=== PATIENT | female | born 1980 | race Two or more races ===

== ENCOUNTER 2022-02-18 21:27 | Inpatient (IN) | payer OTHER ==
[~2022-02-18] VITALS: Ht 157.5 cm; Wt 79.9 kg
[2022-02-19 00:06] LABS: INR 0.92 (0.9-1.15)
[2022-02-19 00:14] LABS: Albumin 2.8 g/dL (3.4-5.0); Calcium 9.1 mg/dL (8.5-10.1); Potassium 3.8 mmol/L (3.5-5.1)
[2022-02-19 00:16] LABS: BUN/Creatinine Ratio 27.1
[2022-02-19 00:31] LABS: Bilirubin, Total 9.1 mg/dL (0.2-1.0); Total Protein 7.2 g/dL (6.4-8.2)
[2022-02-19 00:48] LABS: Hematocrit 31.9 % (36.0-46.0); Hemoglobin 11.1 g/dL (12.2-16.2); Mean Corpuscular Hemoglobin 32.3 pg (28.0-32.0); Mean Corpuscular Hgb Conc. 34.8 g/dL (32.0-36.0); Mean Corpuscular Volume 92.8 fL (80.0-100.0); Red Blood Cells 3.44 10^6/uL (4.0-5.20); White Blood Cell 3.7 10^3/uL (4.4-10.8)
[2022-02-19 00:50] LABS: Band Neutrophils % (manual) 0; Basophils % (manual) 0 (0.0-2.0); Blast Cells 0; Metamyelocytes % 0; Myelocytes % 0; Promyelocytes % 0; Reactive Lymphocytes 0
[2022-02-19 01:39] LABS: Eosinophils % (manual) 4 (0-7); Lymphocytes % (manual) 37 (10.0-50.0); Monocytes % (manual) 4 (0-12)
[2022-02-19] MEDS ORDERED: OXYCODONE W/ ACETAMINOPHEN 5/325MG TABLET PO ONE (05:15)
[2022-02-19] MEDS ORDERED: TEMAZEPAM 15 MG CAP PO PRN (06:15)
[2022-02-19] MEDS ORDERED: ONDANSETRON HCL 4 MG/2 ML VIAL IV PRN (06:15)
[2022-02-19] MEDS ORDERED: MAALOX PLUS or MAALOX 30 ML PO PRN (06:15)
[2022-02-19] MEDS ORDERED: ACETAMINOPHEN 325 MG TAB PO PRN (06:15)
[2022-02-19] MEDS ORDERED: DOCUSATE SOD 100 MG CAP PO PRN (06:15)
[2022-02-19 06:55] LABS: Hematocrit 32.1 % (36.0-46.0); Hemoglobin 11.3 g/dL (12.2-16.2); Mean Corpuscular Hemoglobin 32.1 pg (28.0-32.0); Mean Corpuscular Hgb Conc. 35.1 g/dL (32.0-36.0); Mean Corpuscular Volume 91.4 fL (80.0-100.0); Red Blood Cells 3.52 10^6/uL (4.0-5.20); Red Cell Distribution Width 16.7 % (11.8-14.3); White Blood Cell 3.5 10^3/uL (4.4-10.8)
[2022-02-19 06:59] LABS: Calcium 9.1 mg/dL (8.5-10.1); Potassium 3.4 mmol/L (3.5-5.1)
[2022-02-19 07:03] LABS: BUN/Creatinine Ratio 35.1
[2022-02-19 07:08] LABS: Blast Cells 0; Metamyelocytes % 0; Myelocytes % 0; Promyelocytes % 0; Reactive Lymphocytes 0
[2022-02-19] MEDS: SODIUM CHLORIDE 0.9% 1,000 ML IV SCH ×2 (10:05→22:55)
[2022-02-19 13:02] LABS: Band Neutrophils % (manual) 4; Basophils % (manual) 1 (0.0-2.0); Eosinophils % (manual) 3 (0-7); Lymphocytes % (manual) 28 (10.0-50.0); Monocytes % (manual) 6 (0-12)
[2022-02-19 16:56] LABS: Urine Bacteria NONE SEEN /hpf (None Seen); Urine Blood 3+ /uL (Negative); Urine Mucus FEW (None Seen); Urine Specific Gravity 1.023 (1.001-1.035); Urine WBC 6 /hpf (0 - 5)
[2022-02-19] MEDS ORDERED: LACTULOSE 20Gm/30ML SOLN PO ONE (20:30)
[2022-02-19 20:56] LABS: Albumin 2.6 g/dL (3.4-5.0); Calcium 8.8 mg/dL (8.5-10.1); Potassium 3.6 mmol/L (3.5-5.1)
[2022-02-19 21:10] LABS: Bilirubin, Total 8.2 mg/dL (0.2-1.0); Total Protein 6.7 g/dL (6.4-8.2)
[2022-02-20] MEDS: MORPHINE SULFATE INJ 2 MG/ml SYRG IV PRN ×2 (01:03→08:49)
[2022-02-20 03:18] VITALS: BP 92/47
[2022-02-20 05:00] VITALS: BP 103/61
[2022-02-20] MEDS: LACTULOSE 20Gm/30ML SOLN PO SCH ×2 (08:51→23:18)
[2022-02-20 09:00] VITALS: BP 100/50
[2022-02-20 09:15] LABS: Albumin 2.5 g/dL (3.4-5.0); Calcium 8.4 mg/dL (8.5-10.1); Potassium 3.5 mmol/L (3.5-5.1)
[2022-02-20 09:30] LABS: Hematocrit 32.7 % (36.0-46.0); Hemoglobin 10.9 g/dL (12.2-16.2); Mean Corpuscular Hemoglobin 31.1 pg (28.0-32.0); Mean Corpuscular Hgb Conc. 33.4 g/dL (32.0-36.0); Mean Corpuscular Volume 93.1 fL (80.0-100.0); Red Blood Cells 3.51 10^6/uL (4.0-5.20); Red Cell Distribution Width 16.7 % (11.8-14.3)
[2022-02-20 09:31] LABS: BUN/Creatinine Ratio 18.6; Bilirubin, Total 8.4 mg/dL (0.2-1.0); Total Protein 6.5 g/dL (6.4-8.2)
[2022-02-20 09:35] LABS: Basophils % (manual) 0 (0.0-2.0); Blast Cells 0; Metamyelocytes % 0; Myelocytes % 0; Promyelocytes % 0
[2022-02-20 11:33] LABS: Band Neutrophils % (manual) 10; Eosinophils % (manual) 3 (0-7); Lymphocytes % (manual) 33 (10.0-50.0); Monocytes % (manual) 3 (0-12); Reactive Lymphocytes 2
[2022-02-20 13:00] VITALS: BP 90/50
[2022-02-20] MEDS: SODIUM CHLORIDE 0.9% 1,000 ML IV SCH (14:29)
[2022-02-20 17:00] VITALS: BP 91/47
[2022-02-20] MEDS: methylPREDNISolone SOD SUCC 40 MG/ML VL IV SCH (23:18)
[2022-02-20] MEDS: URSODIOL 300 MG CAP PO SCH (23:18)
[2022-02-20] MEDS: HYDROcodone-ACET 5/325MG TAB PO PRN (23:19)
[2022-02-21 00:21] VITALS: BP 100/59
[2022-02-21] MEDS: LORazepam 0.5 MG TAB PO PRN ×2 (01:59→08:19)
[2022-02-21 05:00] VITALS: BP 108/67
[2022-02-21] MEDS: methylPREDNISolone SOD SUCC 40 MG/ML VL IV SCH ×3 (06:14→21:35)
[2022-02-21] MEDS: SODIUM CHLORIDE 0.9% 1,000 ML IV SCH ×2 (06:14→21:35)
[2022-02-21 09:00] VITALS: BP 123/70
[2022-02-21] MEDS: LACTULOSE 20Gm/30ML SOLN PO SCH ×2 (10:43→21:35)
[2022-02-21] MEDS: URSODIOL 300 MG CAP PO SCH ×2 (10:43→21:35)
[2022-02-21] MEDS ORDERED: URSO300C9 PO (10:51)
[2022-02-21 12:59] VITALS: BP 115/75
[2022-02-21 17:00] VITALS: BP 127/58
[2022-02-21] MEDS: HYDROcodone-ACET 5/325MG TAB PO PRN (18:59)
[2022-02-21] MEDS: MORPHINE SULFATE INJ 2 MG/ml SYRG IV PRN (20:28)
[2022-02-21 22:00] VITALS: BP 127/71
[2022-02-22] MEDS: LORazepam 0.5 MG TAB PO PRN ×2 (01:09→07:46)
[2022-02-22 05:00] VITALS: BP 118/65
[2022-02-22] MEDS: methylPREDNISolone SOD SUCC 40 MG/ML VL IV SCH ×2 (05:26→13:23)
[2022-02-22 08:16] LABS: Albumin 2.6 g/dL (3.4-5.0); Calcium 8.4 mg/dL (8.5-10.1)
[2022-02-22 08:32] LABS: Bilirubin, Total 6.4 mg/dL (0.2-1.0); Total Protein 6.6 g/dL (6.4-8.2)
[2022-02-22 09:00] VITALS: BP 116/71
[2022-02-22] MEDS: URSODIOL 300 MG CAP PO SCH (09:34)
[2022-02-22] MEDS: LACTULOSE 20Gm/30ML SOLN PO SCH (09:34)
[2022-02-22] MEDS ORDERED: LORA0.5T20 PO (10:09)
[2022-02-22] MEDS ORDERED: TRAM50TA2 PO (10:09)
[2022-02-22] MEDS ORDERED: METH4PAK PO (10:09)
[2022-02-22] MEDS ORDERED: AZIT500T66 PO (10:09)
[2022-02-22] MEDS ORDERED: URSO1TAB8 PO (10:09)
[2022-02-22 10:44] VITALS: BP 116/71
[2022-02-22] MEDS ORDERED: LACTULOSE 20Gm/30ML SOLN PO ONE (10:45)
[2022-02-23 09:02] LABS: Hepatitis B Surface Antibody Negative (Negative)
[2022-02-23 09:31] LABS: Hepatitis A Total Antibody Negative (Negative)
[2022-02-23 14:37] LABS: Hepatitis A Ab IgM Negative
[2022-02-23 14:38] LABS: Hepatitis B Core IgM Negative; Hepatitis C Antibody Negative (Negative)
== END 2022-02-22 14:15 | disposition home or self-care (01) | DRG 346 ==
LOC: ER 21:27 → OVERFLOW 02-19 06:08 → EAST 02-20 02:47
PROVIDERS: ADMIT Hospitalist; ATTEND Family Medicine
DX: M35.9 Systemic involvement of connective tissue, unspecified (principal); E43 Unspecified severe protein-calorie malnutrition; K76.6 Portal hypertension; R18.8 Other ascites; K74.3 Primary biliary cirrhosis; K74.60 Unspecified cirrhosis of liver; E86.0 Dehydration; Z68.32 Body mass index [BMI] 32.0-32.9, adult; N39.0 Urinary tract infection, site not specified; Z79.899 Other long term (current) drug therapy; R16.1 Splenomegaly, not elsewhere classified; Z20.822 Contact with and (suspected) exposure to COVID-19
CPT/HCPCS: 36415; 71045; 74176; 76705; 80048; 80053; 80074; 80329; 81001; 82140; 83516; 83605; 83690; 83880; 84484; 85007; 85027; 85610; 86038; 86225; 86235; 86704; 86706; 86708; 86803; 87086; 87340; 87426; G0378; J2405

== ENCOUNTER 2024-05-24 11:30 | Inpatient (IN) | payer OTHER ==
[~2024-05-24] VITALS: Ht 180.3 cm; Wt 82.2 kg
[~2024-05-24 11:30] MED LIST: AZIT500T66 PO; LORA-1121 PO; METH4PAK PO; TRAM50TA2 PO; URSO1TAB8 PO; URSO300C2 PO
--- NOTE | 2024-05-24 11:43 | ED.PDOC ---
GI ASSESSMENT HPI Comments 43 year old female presents to the ED with chief complaint of abdominal pain. Patient reports that she has been experiencing 8/10 RUQ abdominal pain with associated nausea, vomiting, and jaundice to her eyes. 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 Patient states that her pain sometimes radiates to her back. Patient denies any diarrhea, fever, chills, chest pain, SOB, or hematemesis. Time Seen by MD: 11:39 Reviewed Notes: Nurses Notes, Medications, Allergies Allergies: Coded Allergies: NO KNOWN ALLERGIES (Unverified , 02/18/22) Home Meds Active Scripts Lorazepam (ATIVAN TABLET) 0.5 Mg Tb, 1 TAB PO TID PRN, #20 TAB Prov:MICHELLE ZAMORA MD 02/22/22 Tramadol Hcl (Tramadol Hcl) 50 Mg Tab, 50 MG PO TID PRN, #20 TAB Prov:MICHELLE ZAMORA MD 02/22/22 Ursodiol (Ursodiol) 500 Mg Tab, 500 MG PO BID, #60 TAB Prov:MICHELLE ZAMORA MD 02/22/22 Methylprednisolone (Medrol Dosepak) 4 Mg Jonah, 4 MG PO UD, #21 TAB UAD Prov:MICHELLE ZAMORA MD 02/22/22 Azithromycin (Azithromycin) 500 Mg Tab, 1 TAB PO DAILY, #7 TAB Prov:MICHELLE ZAMORA MD 02/22/22 Reported Medications Ursodiol (Ursodiol) 300 Mg Cap, 300 MG PO BID for 30 Days, MG 02/21/22 Information Source: Patient Mode of Arrival: Ambulatory Timing: Days Duration: Since onset Prehospital treatment: None Quality: Sharp Vomitus: Watery Stool: Normal Severity: Moderate Recent: None Recent Hx of: Liver Disease Pain Location: RUQ Modifying Factors: Nothing Associated sign and symptoms: Nausea, Vomiting, Abdominal Pain, Other (Jaundice) Past Medical History PAST MEDICAL HISTORY: Liver Surgical History: Appendectomy SEWER DIGGER History: No Pertinent SEWER DIGGER History Family History Family History: Reviewed,noncontributory to illness, Family hx of Cancer Family History (Other): Aneurysm Social History Smoker: Non-Smoker Alcohol: Denies ETOH Use Drugs: Denies Drug Use Lives In: Home Constitutional: denies: chills, diaphoresis, fatigue, fever, malaise, sweats, weakness, others EENTM: denies: blurred vision, double vision, ear bleeding, ear discharge, ear drainage, ear pain, ear ringing, eye pain, eye redness, hearing loss, mouth pain, mouth swelling, nasal discharge, nose bleeding, nose congestion, nose pain, photophobia, tearing, throat pain, throat swelling, voice changes, others Respiratory: denies: cough, hemoptysis, orthopnea, SOB at rest, shortness of breath, SOB with excertion, stridor, wheezing, others Cardiovascular: denies: chest pain, dizzy spells, diaphoresis, Dyspnea on exertion, edema, irregular heart beat, left arm pain, lightheadedness, palpitations, PND, syncope, others Gastrointestinal: reports: abdominal pain, nausea, vomiting; denies: abdomen distended, blood streaked bowels, constipated, diarrhea, dysphagia, difficulty swallowing, hematemesis, melena, poor appetite, poor fluid intake, rectal bleeding, rectal pain, others Genitourinary: denies: abnormal vagina bleeding, burning, dyspareunia, dysuria, flank pain, frequency, hematuria, incontinence, pain, , vagina discharge, urgency, others Neurological: denies: dizziness, fainting, headache, left sided numbness, left sided weakness, numbness, paresthesia, pre-existing deficit, right sided numbness, right sided weakness, seizure, speech problems, tingling, tremors, weakness, others Musculoskeletal: denies: back pain, gout, joint pain, joint swelling, muscle pain, muscle stiffness, neck pain, others Integumetry: reports: change in color (Jaundice); denies: bruises, change in hair/nails, dryness, laceration, lesions, lumps, rash, wounds, others Allergic/Immunocompromised: denies: Difficulty Healing, Frequent Infections, Hives, Itching, others Hematologic/Lymphatic: denies: anemia, blood clots, easy bleeding, easy bruising, swollen glands, others Endocrine: denies: excessive hunger, excessive sweating, excessive thirst, excessive urination, flushing, intolerance to cold, intolerance to heat, unexplained weight gain, unexplained weight loss, others Psychiatric: denies: anxiety, bipolar disorder, depression, hopeless, panic disorder, schizophrenia, sleepless, suicidal, others All Other Systems: Reviewed and Negative Physical Exam General Appearance: Moderate Distress HEENT: Pharynx Normal, Scleral Icterus (L), Scleral Icterus (R), TMs Normal Neck: Full Range of Motion, Non-Tender, Normal, Normal Inspection Respiratory: Chest Non-Tender, Lungs Clear, No Accessory Muscle Use, No Respiratory Distress, Normal Breath Sounds Cardiovascular: No Edema, No JVD, No Murmur, No Gallop, Normal Peripheral Pulses, Regular Rate/Rhythm Breast Exam: Deferred Gastrointestinal: No Organomegaly, No Pulsatile Mass, Normal Bowel Sounds, RUQ, Soft, Tenderness Genitalia: Deferred Pelvic: Deferred Rectal: Deferred Extremities: No calf tenderness, Normal capillary refill, Normal inspection, Normal range of motion, Non-tender, No pedal edema Musculoskeletal : Apperance: Normal Neurologic: Alert, dry starch operator II-XII nml as Tested, Motor Weakness, Normal Affect, Normal Mood, No Sensory Deficits Cerebellar Function: Normal Reflexes: Normal Skin: Dry, Jaundice, Warm Lymphatic: No Adenopathy Was a procedure done? Was a procedure done?: No GI differential Dx Differential Diagnosis: Gastritis/PUD, Gastroenteritis, Pancreatitis, Electrolyte Imbalance X-Ray, Labs, Meds, VS Vital Signs Date Time Temp Pulse Resp B/P (MAP) Pulse Ox O2 Delivery O2 Flow Rate FiO2 05/24/24 13:16 80 16 118/71 05/24/24 13:16 98.2 80 16 118/71 (87) 97 98.2 05/24/24 11:38 98.1 96 16 129/83 (98) 97 98.1 Lab Test 05/24/24 12:48 Range/Units White Blood Count 2.9 L 4.4-10.8 10^3/uL Red Blood Count 3.55 L 4.0-5.20 10^6/uL Hemoglobin 11.5 L 12.2-16.2 g/dL Hematocrit 34.0 L 36.0-46.0 % Mean Corpuscular Volume 95.9 80.0-100.0 fL Mean Corpuscular Hemoglobin 32.5 H 28.0-32.0 pg Mean Corpuscular Hemoglobin Concent 33.9 32.0-36.0 g/dL Red Cell Distribution Width 16.3 H 11.8-14.3 % Platelet Count 134 L 140-450 10^3/uL Mean Platelet Volume 9.6 6.9-10.8 fL Neutrophils (%) (Auto) 56.2 37.0-80.0 % Lymphocytes (%) (Auto) 28.5 10.0-50.0 % Monocytes (%) (Auto) 10.3 0.0-12.0 % Eosinophils (%) (Auto) 4.3 0.0-7.0 % Basophils (%) (Auto) 0.7 0.0-2.0 % Neutrophils # (Auto) 1.6 1.6-8.6 10 ^3/uL Lymphocytes # (Auto) 0.8 0.4-5.4 10 ^3/uL Monocytes # (Auto) 0.3 0-1.3 10 ^3/uL Eosinophils # (Auto) 0.1 0-0.8 10 ^3/uL Basophils # (Auto) 0 0-0.2 10 ^3/uL Nucleated Red Blood Cells 0.2 % Prothrombin Time 10.7 9.3-11.8 sec Prothrombin Time INR 1.01 0.9-1.15 Activated Partial Thromboplast Time 27.9 24.5-34.5 SEC Sodium Level 138 136-145 mmol/L Potassium Level 3.8 3.5-5.1 mmol/L Chloride Level 102 98-107 mmol/L Carbon Dioxide Level 29 20-31 mmol/L Anion Gap 7 5-15 Blood Urea Nitrogen 12 9-23 mg/dL Creatinine 0.47 L 0.550-1.02 mg/dL Glomerular Filtration Rate Calc 121 >90 mL/min BUN/Creatinine Ratio 25.5 H 10.0-20.0 Serum Glucose 90 74-106 mg/dL Calcium Level 9.4 8.7-10.4 mg/dL Total Bilirubin 7.0 H 0.2-1.0 mg/dL Aspartate Amino Transferase (AST) 142 H 13-40 U/L Alanine Aminotransferase (ALT) 115 H 7-40 U/L Alkaline Phosphatase 863 H 46-116 U/L Total Protein 6.9 5.7-8.2 g/dL Albumin 3.3 3.2-4.8 g/dL Lipase 108 H 12-53 U/L Current Medications Medications (Trade) Dose Ordered Sig/Sunday Route Start Time Stop Time Status Last Admin Ondansetron HCl (Zofran) 4 mg ONCE ONCE IV 05/24/24 11:45 05/24/24 11:46 DC 05/24/24 13:15 Morphine Sulfate 4 mg ONCE ONCE IV 05/24/24 11:45 05/24/24 11:46 DC 05/24/24 13:16 Sodium Chloride 500 ml @ 500 mls/hr Q1H ONCE IVB 05/24/24 11:45 05/24/24 12:44 DC 05/24/24 13:14 Gallbladder US indicates: Gallstones and gallbladder sludge. Gallbladder wall thickening measuring 4 mm. Sonographic graves's sign is reportedly positive. Findings can be seen in the setting of acute cholecystitis. IV Hep-Lock was established. The patient was given normal saline at 500 cc bolus. The patient was given morphine 4 mg IV push for the pain The patient was given Zofran 4 mg IV push for the nausea The lipase is elevated at 108 The liver enzymes are elevated The CBC shows mild anemia with a hemoglobin of 11.5 The patient was being admitted at this time Images Reviewed?: Images reviewed and evaluated by me Time of 1ST Reevaluation: 14:11 Reevaluation 1ST: Unchanged Patient Education/Counseling: Diagnosis, Treatment, Prognosis Family Education/Counseling: No Family Present Additional Information -Reviewed patient's previous visit(s): 02/19/22 for suspected cirrhosis - The following tests were ordered, and results were reviewed by me: CBC, CMP, Lipase, Gallbladder US, PTPTT - Additional information was gathered from interviewing the following independent Historian: None - I reviewed and agreed with the following test results read by other provider: Gallbladder US - I discussed treatments and results with medical personnel and: patient Comprehensive systems review obtained and negative except for what is stated in the HPI. Departure 1 Departure Time of Disposition: 14:10 Impression: Primary Impression: Intractable abdominal pain Additional Impression: Acute cholecystitis Disposition: ADMITTED INPATIENT Admit to: Tele Condition: Fair Critical Care Note Critical Care Time?: No Stability Stability form required: Yes Unstable for transfer: ED Physician Assesment (Clinical assesment) Heart Score Heart Score: Heart Score Response (Comments) Value History N/A 0 EKG N/A 0 Age N/A 0 Risk Factors N/A 0 Troponin N/A 0 Total 0 I personally scribed for SUZETTE ARTHUR MD ([email or web address]) on 05/24/24 at 11:43. Electronically submitted by Dereck Woodward ([email or web address]). I personally scribed for SUZETTE ARTHUR MD ([email or web address]) on 05/24/24 at 11:45. Electronically submitted by Dereck Woodward ([email or web address]). I personally scribed for SUZETTE ARTHUR MD ([email or web address]) on 05/24/24 at 14:01. Electronically submitted by Dereck Woodward ([email or web address]). SUZETTE ARTHUR MD May 24, 2024 11:43
--- NOTE | 2024-05-24 13:08 | DVH ---
INDICATION: pain TECHNIQUE: Multiple real-time sonographic images were obtained of the right upper quadrant. COMPARISON: ABDL on DOS: 02/21/22, ABDOMEN LIMITED on DOS: 02/21/22, ABDOMEN LIMITED on DOS: 02/19/22, ABDL on DOS: 02/19/22 FINDINGS: The liver demonstrates homogenous echotexture without focal mass lesions. The liver measure s 13 cm. There is no intrahepatic or extrahepatic ductal dilatation. The common duct measures not w ell visualized due to obscuration from bowel gas. The gallbladder is without evidence of stone or sludge. The gallbladder wall measures 4 mm and is wi thin normal limits. Sonographic Mars's sign is reportedly positive. The right kidney measures 10.8 cm. The right kidney is normal in contour, size, and shape. The echog enicity is normal. There is no hydronephrosis. The pancreas is not well visualized due to overlying bowel gas. IMPRESSION: Gallstones and gallbladder sludge. Gallbladder wall thickening measuring 4 mm. Sonographic mars's sign is reportedly positive. Findings can be seen in the setting of acute cholecystitis.
[2024-05-24] MEDS: SODIUM CHLORIDE 0.9% 500 ML IVB ONE (13:14)
[2024-05-24 13:15] LABS: Basophils # (auto) 0 10 ^3/uL (0-0.2); Basophils % (auto) 0.7 % (0.0-2.0); Eosinophils # (auto) 0.1 10 ^3/uL (0-0.8); Eosinophils % (auto) 4.3 % (0.0-7.0); Hemoglobin 11.5 g/dL (12.2-16.2); Lymphocytes # (auto) 0.8 10 ^3/uL (0.4-5.4); Lymphocytes % (auto) 28.5 % (10.0-50.0); Mean Corpuscular Hemoglobin 32.5 pg (28.0-32.0); Mean Corpuscular Hgb Conc. 33.9 g/dL (32.0-36.0); Mean Corpuscular Volume 95.9 fL (80.0-100.0); Monocytes # (auto) 0.3 10 ^3/uL (0-1.3); Monocytes % (auto) 10.3 % (0.0-12.0); Neutrophils # (auto) 1.6 10 ^3/uL (1.6-8.6); Neutrophils % (auto) 56.2 % (37.0-80.0); Nucleated Red Blood Cells % 0.2 %; Platelet Count (auto) 134 10^3/uL (140-450); Red Blood Cells 3.55 10^6/uL (4.0-5.20); Red Cell Distribution Width 16.3 % (11.8-14.3); White Blood Cell 2.9 10^3/uL (4.4-10.8)
[2024-05-24] MEDS: ONDANSETRON HCL 4 MG/2 ML VIAL IV ONE ×2 (13:15→18:01)
[2024-05-24] MEDS: MORPHINE SULFATE 4 MG/ML SYR/VIAL IV ONE ×2 (13:16→18:01)
[2024-05-24 13:20] LABS: INR 1.01 (0.9-1.15); Partial Thromboplastin Time 27.9 SEC (24.5-34.5); Prothrombin Time 10.7 sec (9.3-11.8)
[2024-05-24 13:23] LABS: Albumin 3.3 g/dL (3.2-4.8); Anion Gap 7 (5-15); BUN/Creatinine Ratio 25.5 (10.0-20.0); Blood Urea Nitrogen 12 mg/dL (9-23); Calcium 9.4 mg/dL (8.7-10.4); Carbon Dioxide 29 mmol/L (20-31); Chloride 102 mmol/L (98-107); Glucose 90 mg/dL (74-106); Potassium 3.8 mmol/L (3.5-5.1); Sodium 138 mmol/L (136-145); Total Protein 6.9 g/dL (5.7-8.2)
[2024-05-24 13:24] LABS: Alanine Aminotransferase 115 U/L (7-40); Alkaline Phosphatase 863 U/L (46-116); Aspartate Aminotransferase 142 U/L (13-40); Lipase 108 U/L (12-53)
[2024-05-24] MEDS: metroNIDAZOLE 500MG/100ML 100 ML IV ONE (14:42)
[2024-05-24] MEDS: LACTATED RINGER'S 1,000 ML IV SCH (19:00)
--- NOTE | 2024-05-24 19:04 | DVHHPRES ---
History of Present Illness Resident Creating Document: SAMUEL CALDERON RESIDENT History of Present Illness This is a 43-year-old female with past medical history of liver disease presented to the ED with a chief complaint of right upper quadrant abdominal pain with nausea and vomiting and also yellow discoloration of the sclera for last 2 days prior to this admission. According to the patient the abdominal pain started 2 days ago which was sharp colicky pain, 8/10, radiates to the back, associated with nausea, vomiting and yellow coloration of the sclera. She also complaint of burning sensation and foul smelly urine for the same duration. she mentioned that she has a intermittent jaundice for last 1 year and her primary care is down the [facility] in [place]. she denies fever, chills, chest pain, shortness of breath, altered bowel habit, recent sick contact or any recent traveling. Past Medical History Liver disease Past Surgical History Appendectomy Family History None Smoke: No ALCOHOL: none Drugs: None Lives: with Family Past Social History Lives with family Nonsmoker, nonalcoholic and never tried any drugs Review of Systems Constitutional: No: Fever, Chills, Sweats, Weakness, Malaise, Other Eyes: No: Pain, Vision change, Conjunctivae inflammation, Eyelid inflammation, Other, Redness ENT: No: Ear pain, Ear discharge, Nose pain, Nose discharge, Nose congestion, Mouth pain, Mouth swelling, Throat pain, Throat swelling, Other Respiratory: No: Cough, Dry, Shortness of breath, SOB with excertion, Wheezing, Hemoptysis, Pleuritic Pain, Sputum, Wheezing, Other Cardiovascular: No: Chest Pain, Palpitations, Orthopnea, Paroxysmal Noc. Dyspnea, Edema, Lt Headedness, Other Gastrointestinal: Nausea, Vomiting, Abdominal Pain; No: Diarrhea, Constipation, Melena, Hematochezia, Other Genitourinary: No Dysuria, No Frequency, No Incontinence, No Hematuria, No Retention, No Other Musculoskeletal: No: other, neck pain, shoulder pain, arm pain, back pain, hand pain, leg pain, foot pain Skin: No: Rash, Lesions, Jaundice, Bruising, Other Neurological: No: Weakness, Numbness, Incoordination, Change in speech, Confusion, Seizures, Other Allergies: Coded Allergies: NO KNOWN ALLERGIES (Unverified , 02/18/22) Exam Vital Signs Vital Signs Date Time Temp Pulse Resp B/P (MAP) Pulse Ox O2 Delivery O2 Flow Rate FiO2 05/24/24 18:27 72 20 122/67 05/24/24 17:48 98.0 98 98.0 Exam Physical examination: General Appearance: Alert, Oriented X3, Cooperative, mild distress ( Icteric appearance) HEENT: Atraumatic, PERRLA, EOMI, Mucous membrane moist/pink Respiratory: Clear to auscultation, Normal air movement Cardiovascular: Regular rate, Normal S1, Normal S2, No murmurs, no chest wall tenderness Abdominal: Normal bowel sounds, Soft, rt upper quadrant tenderness, No hepatospenomegaly, No masses Extremities: No clubbing, No cyanosis, No edema, Normal pulses, No tenderness/swelling Skin: No rashes, No breakdown, No significant lesion Neuro: Normal gait, Normal speech, Strength at 5/5 X4 ext, Normal tone, Sensation intact, Cranial nerves 3-12 NL, Reflexes 2+ Psych/Mental Status: Mental status NL, Mood NL Labs/Xrays Labs Test 05/24/24 12:48 Range/Units White Blood Count 2.9 L 4.4-10.8 10^3/uL Red Blood Count 3.55 L 4.0-5.20 10^6/uL Hemoglobin 11.5 L 12.2-16.2 g/dL Hematocrit 34.0 L 36.0-46.0 % Mean Corpuscular Volume 95.9 80.0-100.0 fL Mean Corpuscular Hemoglobin 32.5 H 28.0-32.0 pg Mean Corpuscular Hemoglobin Concent 33.9 32.0-36.0 g/dL Red Cell Distribution Width 16.3 H 11.8-14.3 % Platelet Count 134 L 140-450 10^3/uL Mean Platelet Volume 9.6 6.9-10.8 fL Neutrophils (%) (Auto) 56.2 37.0-80.0 % Lymphocytes (%) (Auto) 28.5 10.0-50.0 % Monocytes (%) (Auto) 10.3 0.0-12.0 % Eosinophils (%) (Auto) 4.3 0.0-7.0 % Basophils (%) (Auto) 0.7 0.0-2.0 % Neutrophils # (Auto) 1.6 1.6-8.6 10 ^3/uL Lymphocytes # (Auto) 0.8 0.4-5.4 10 ^3/uL Monocytes # (Auto) 0.3 0-1.3 10 ^3/uL Eosinophils # (Auto) 0.1 0-0.8 10 ^3/uL Basophils # (Auto) 0 0-0.2 10 ^3/uL Nucleated Red Blood Cells 0.2 % Prothrombin Time 10.7 9.3-11.8 sec Prothrombin Time INR 1.01 0.9-1.15 Activated Partial Thromboplast Time 27.9 24.5-34.5 SEC Sodium Level 138 136-145 mmol/L Potassium Level 3.8 3.5-5.1 mmol/L Chloride Level 102 98-107 mmol/L Carbon Dioxide Level 29 20-31 mmol/L Anion Gap 7 5-15 Blood Urea Nitrogen 12 9-23 mg/dL Creatinine 0.47 L 0.550-1.02 mg/dL Glomerular Filtration Rate Calc 121 >90 mL/min BUN/Creatinine Ratio 25.5 H 10.0-20.0 Serum Glucose 90 74-106 mg/dL Calcium Level 9.4 8.7-10.4 mg/dL Total Bilirubin 7.0 H 0.2-1.0 mg/dL Aspartate Amino Transferase (AST) 142 H 13-40 U/L Alanine Aminotransferase (ALT) 115 H 7-40 U/L Alkaline Phosphatase 863 H 46-116 U/L Total Protein 6.9 5.7-8.2 g/dL Albumin 3.3 3.2-4.8 g/dL Lipase 108 H 12-53 U/L Assessment/Plan Assessment/Plan Assessment and plan: # Acute cholecystitis with possible acute cholangitis # Hyperbilirubinemia with transaminitis # Possible acute pancreatitis # Pancytopenia likely due to liver cirrhosis - Ultrasound of the gallbladder demonstrated Gallstones and gallbladder sludge. Gallbladder wall thickening measuring 4 mm. Sonographic graves's sign is reportedly positive. Findings can be seen in the setting of acute cholecystitis. - Lipase is 108 - IV lactated Ringer's at 1:25 a.m. mL/hours - IV morphine 2 mg Q 6 p.r.n. - IV ondansetron 4 mg Q 8 p.r.n. - IV Protonix 40 mg IV daily - IV ceftriaxone 1 g daily - Consulted surgery and GI - Pending hepatitis panel, urine test # Possible acute complicated cystitis - Pending urinalysis # DVT prophylaxis - Not recommended Goal of care discussed with the patient for more than 20 minutes full code. Plan discussed with Dr. Earl Plan discussed with: Patient, Other My Orders Orders - SAMUEL CALDERON RESIDENT Procedure Category Date Status Time Admit ADMIT 05/24/24 Transmitted 18:51 Test, Urine LAB 05/24/24 Logged 18:55 Urinalysis LAB 05/24/24 Logged 18:57 Comprehensive LAB 05/24/24 Logged Hepatitis Panel 18:57 PTPTT LAB 05/24/24 Logged 18:57 Thyroid Stimulating LAB 05/24/24 Logged Hormone 18:57 Lactated Ringers Lr PHA 05/24/24 Verified 19:00 Ondansetron Hcl PHA 05/24/24 Verified (Zofran) 22:00 Pantoprazole PHA 05/25/24 Verified (Protonix) 10:00 Morphine Sulfate PHA 05/25/24 Verified Injection 00:00 * Surgical Consult CONS 05/24/24 Verified * [facility] [employer] Design Engineer CONS 05/24/24 Verified 18:58 Date of Service: May 24, 2024 Billing Provider: CICI EARL MD Common Visit Codes: 94841-[id number] INP/OBS CARE (HIGH) SAMUEL CALDERON RESIDENT May 24, 2024 19:04 CICI EARL MD May 25, 2024 09:55
[2024-05-24] MEDS: cefTRIAXone 1GM/50ML D5W 50 ML IV ONE (19:30)
[2024-05-24 21:09] LABS: Urine Bacteria FEW /hpf (None Seen); Urine Blood Negative /uL (Negative); Urine Clarity Turbid (Clear); Urine Color Dark-Yellow (Yellow); Urine Hyaline Cast FEW /lpf (0 - 2); Urine Mucus FEW (None Seen); Urine Protein, UAD Negative (Negative); Urine Specific Gravity 1.023 (1.001-1.035); Urine Squamous Epithelial Cell MOD /hpf (<5); Urine Urobilinogen 4 mg/dL (Negative); Urine WBC < 1 /HPF (0-5); Urine pH 5.5 (5.0-9.0)
[2024-05-24 21:22] LABS: INR 1.02 (0.9-1.15); Partial Thromboplastin Time 27.5 SEC (24.5-34.5); Prothrombin Time 10.8 sec (9.3-11.8)
[2024-05-24] MEDS: ONDANSETRON HCL 4 MG/2 ML VIAL IV SCH (22:00)
[2024-05-25] VITALS (9 sets, daily range): BP systolic 95–121; BP diastolic 51–79; PULSE 73–82; RESP 16–20; TEMP 97.4–98.1; O2SAT 91–100
[2024-05-25] MEDS: MORPHINE SULFATE INJ 2 MG/ml SYRG IV SCH
[2024-05-25 05:56] LABS: Basophils # (auto) 0.1 10 ^3/uL (0-0.2); Basophils % (auto) 1.7 % (0.0-2.0); Eosinophils # (auto) 0.1 10 ^3/uL (0-0.8); Eosinophils % (auto) 4.3 % (0.0-7.0); Hematocrit 32.7 % (36.0-46.0); Hemoglobin 11.5 g/dL (12.2-16.2); Lymphocytes # (auto) 1.2 10 ^3/uL (0.4-5.4); Lymphocytes % (auto) 37.3 % (10.0-50.0); Mean Corpuscular Hemoglobin 33.7 pg (28.0-32.0); Mean Corpuscular Hgb Conc. 35.2 g/dL (32.0-36.0); Mean Corpuscular Volume 95.8 fL (80.0-100.0); Monocytes # (auto) 0.2 10 ^3/uL (0-1.3); Monocytes % (auto) 6.3 % (0.0-12.0); Neutrophils # (auto) 1.6 10 ^3/uL (1.6-8.6); Neutrophils % (auto) 50.4 % (37.0-80.0); Platelet Count (auto) 129 10^3/uL (140-450); Red Blood Cells 3.41 10^6/uL (4.0-5.20); Red Cell Distribution Width 16.2 % (11.8-14.3); White Blood Cell 3.2 10^3/uL (4.4-10.8)
[2024-05-25 05:59] LABS: Albumin 3.3 g/dL (3.2-4.8); Anion Gap 9 (5-15); BUN/Creatinine Ratio 24.6 (10.0-20.0); Blood Urea Nitrogen 14 mg/dL (9-23); Calcium 9.2 mg/dL (8.7-10.4); Carbon Dioxide 27 mmol/L (20-31); Chloride 101 mmol/L (98-107); Glucose 82 mg/dL (74-106); Sodium 137 mmol/L (136-145); Total Protein 7.1 g/dL (5.7-8.2)
[2024-05-25 06:03] LABS: Alanine Aminotransferase 113 U/L (7-40); Alkaline Phosphatase 851 U/L (46-116); Aspartate Aminotransferase 142 U/L (13-40); Bilirubin, Total 7.6 mg/dL (0.2-1.0); Potassium 3.4 mmol/L (3.5-5.1)
[2024-05-25] MEDS: SODIUM CHL 0.9% 100 ML IV ONE (06:58)
[2024-05-25] MEDS: PANTOPRAZOLE 40 MG/10 ML VIAL INJ IV SCH (09:17)
[2024-05-25] MEDS: cefTRIAXone 1GM/50ML D5W 50 ML IV SCH (09:17)
[2024-05-25] MEDS: IOHEXOL 300 MG/ML 100ML BOTTLE IJ ONE (09:21)
[2024-05-25] MEDS: LORazepam 2MG/ML-1ML VIAL IV ONE (09:47)
--- NOTE | 2024-05-25 10:35 | DVH ---
CHEST RADIOGRAPH Indication: Chest pain Technique: Single frontal view of the chest was obtained Comparison: CHEST PORTABLE on DOS: 02/18/22, CXRP on DOS: 02/18/22 FINDINGS: Lines and Tubes: None Lungs: No focal consolidation. Pleura: No effusion. No pneumothorax. Cardiomediastinal contours: Unremarkable Bones: No acute osseous abnormality. IMPRESSION: No acute cardiopulmonary disease.
--- NOTE | 2024-05-25 10:58 | DVH ---
Exam: CT CT AB PEL WITH IV CON ONLY History: Acute cholecystitis with possible cholangitis TECHNIQUE: Multiple contiguous axial CT images of the abdomen and pelvis were obtained with intraveno us contrast. The images were reformatted to generate coronal and sagittal reconstructions. 100 cc of Omnipaque 350 contrast was injected intravenously. All CT scans at this medical facility are performed using dose modulation techniques as appropriate t o a performed exam including the following:Automated exposure control was utilized; adjustment of the MA and/or KV according to patient size; and use of iterative reconstruction technique. Radiation Dose Information: CT Dose: CTDI volume is 15.27 mGy. Dose-length product is 766.33 mGy*cm Comparison: 02/18/2022 FINDINGS: The gallbladder is contracted with thickened appearing miller. There is a 2.5 cm calcified gallstone along with hyperdense sludge in the gallbladder. There are several small gallstones seen in the proxi mal common bile duct measuring up to 5 mm. There is mild central intrahepatic biliary ductal dilatat ion. There is no significant pericholecystic fluid. The spleen appears within normal limits. There are again multiple prominent perisplenic varices with likely splenorenal shunting. The liver, pancreas, kidneys, adrenal glands, appear within normal limits. There is no evidence of abdominal lymphadenopathy. There is no free fluid or free air. There is small hiatal hernia. The small and large bowel loops demonstrate normal caliber and distribu tion. The appendix is not seen in the right lower quadrant abdomen. There are no secondary signs of acute appendicitis. The abdominal aorta and IVC appear within normal limits. The bladder appears within normal limits the degree of distention. The uterus is retroverted and artur sly appears within normal limits. There is no evidence of a pelvic mass or lymphadenopathy. There is no free fluid collection. Lung bases are clear. There is no acute osseous abnormality. IMPRESSION: 1. The gallbladder is contracted with thickened miller and contains a 2.5 cm gallstone along with Hype rdense sludge. There are several small gallstones seen in the proximal common bile duct measuring up to 5 mm. There is mild central intrahepatic biliary ductal dilatation. 2. 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 HS:Y
--- NOTE | 2024-05-25 11:09 | DVHINCON2 ---
Date of service: May 25, 2024 Family History: FHx: lung cancer G8 MOTHER Allergies: Coded Allergies: NO KNOWN ALLERGIES (Unverified , 02/18/22) Home Meds Active Scripts Lorazepam (ATIVAN TABLET) 0.5 Mg Tb, 1 TAB PO TID PRN, #20 TAB Prov:MICHELLE ZAMORA MD 02/22/22 Tramadol Hcl (Tramadol Hcl) 50 Mg Tab, 50 MG PO TID PRN, #20 TAB Prov:MICHELLE ZAMORA MD 02/22/22 Ursodiol (Ursodiol) 500 Mg Tab, 500 MG PO BID, #60 TAB Prov:MICHELLE ZAMORA MD 02/22/22 Methylprednisolone (Medrol Dosepak) 4 Mg Jonah, 4 MG PO UD, #21 TAB UAD Prov:MICHELLE ZAMORA MD 02/22/22 Azithromycin (Azithromycin) 500 Mg Tab, 1 TAB PO DAILY, #7 TAB Prov:MICHELLE ZAMORA MD 02/22/22 Reported Medications Ursodiol (Ursodiol) 300 Mg Cap, 300 MG PO BID for 30 Days, MG 02/21/22 Current Medications Current Medications Medications (Trade) Dose Ordered Sig/Sunday Route PRN Reason Start Time Stop Time Status Last Admin Lactated Ringer's 1,000 ml @ 125 mls/hr Q8H IV 05/24/24 19:00 Ondansetron HCl (Zofran) 4 mg Q8HPRN IV 05/24/24 22:00 05/25/24 06:49 Pantoprazole Sodium (Protonix) 40 mg DAILY IV 05/25/24 10:00 05/25/24 09:17 Morphine Sulfate 2 mg Q6HPRN IV 05/25/24 00:00 05/25/24 06:51 Ceftriaxone Sodium 50 ml @ 100 mls/hr DAILY@09 IV 05/25/24 09:00 05/25/24 09:17 Vital Signs Vital Signs Date Time Temp Pulse Resp B/P (MAP) Pulse Ox O2 Delivery O2 Flow Rate FiO2 05/25/24 09:00 97.8 73 20 95/51 (66) 97 97.8 05/25/24 07:02 Room Air* 0 21 Labs/Diagnostic Data Labs Test 05/25/24 04:55 05/24/24 20:47 05/24/24 12:48 05/24/24 11:40 Range/Units White Blood Count 3.2 L 4.4-10.8 10^3/uL Red Blood Count 3.41 L 4.0-5.20 10^6/uL Hemoglobin 11.5 L 12.2-16.2 g/dL Hematocrit 32.7 L 36.0-46.0 % Mean Corpuscular Volume 95.8 80.0-100.0 fL Mean Corpuscular Hemoglobin 33.7 H 28.0-32.0 pg Mean Corpuscular Hemoglobin Concent 35.2 32.0-36.0 g/dL Red Cell Distribution Width 16.2 H 11.8-14.3 % Platelet Count 129 L 140-450 10^3/uL Mean Platelet Volume 9.7 6.9-10.8 fL Neutrophils (%) (Auto) 50.4 37.0-80.0 % Lymphocytes (%) (Auto) 37.3 10.0-50.0 % Monocytes (%) (Auto) 6.3 0.0-12.0 % Eosinophils (%) (Auto) 4.3 0.0-7.0 % Basophils (%) (Auto) 1.7 0.0-2.0 % Neutrophils # (Auto) 1.6 1.6-8.6 10 ^3/uL Lymphocytes # (Auto) 1.2 0.4-5.4 10 ^3/uL Monocytes # (Auto) 0.2 0-1.3 10 ^3/uL Eosinophils # (Auto) 0.1 0-0.8 10 ^3/uL Basophils # (Auto) 0.1 0-0.2 10 ^3/uL Nucleated Red Blood Cells 0.0 % Sodium Level 137 136-145 mmol/L Potassium Level 3.4 L 3.5-5.1 mmol/L Chloride Level 101 98-107 mmol/L Carbon Dioxide Level 27 20-31 mmol/L Anion Gap 9 5-15 Blood Urea Nitrogen 14 9-23 mg/dL Creatinine 0.57 0.550-1.02 mg/dL Glomerular Filtration Rate Calc 116 >90 mL/min BUN/Creatinine Ratio 24.6 H 10.0-20.0 Serum Glucose 82 74-106 mg/dL Calcium Level 9.2 8.7-10.4 mg/dL Total Bilirubin 7.6 H 0.2-1.0 mg/dL Aspartate Amino Transferase (AST) 142 H 13-40 U/L Alanine Aminotransferase (ALT) 113 H 7-40 U/L Alkaline Phosphatase 851 H 46-116 U/L Total Protein 7.1 5.7-8.2 g/dL Albumin 3.3 3.2-4.8 g/dL Prothrombin Time 10.8 9.3-11.8 sec Prothrombin Time INR 1.02 0.9-1.15 Activated Partial Thromboplast Time 27.5 24.5-34.5 SEC Lipase 108 H 12-53 U/L Thyroid Stimulating Hormone (TSH) 2.71 0.55-4.78 uIU/mL Urine Color Dark-yellow Yellow Urine Clarity Turbid H Clear Urine pH 5.5 5.0-9.0 Urine Specific [place] 1.023 1.001-1.035 Urine Protein Negative Negative Urine Ketones Negative Negative Urine Blood Negative Negative /uL Urine Nitrite Negative Negative Urine Bilirubin 2+ H Negative Urine Urobilinogen 4 H Negative mg/dL Urine Leukocyte Esterase Negative Negative /uL Urine RBC 1 0 - 4 /hpf Urine Microscopic WBC < 1 0-5 /HPF Urine Squamous Epithelial Cells Mod <5 /hpf Urine Bacteria Few H None Seen /hpf Urine Hyaline Casts Few 0 - 2 /lpf Urine Mucus Few None Seen Urine Glucose Normal Normal mg/dL Urine Test Negative Negative Assessment [id number] R/O AC CHOLECYSTITIS R/O CBD STONE LFT ELEVATED MRCP CONSIDER GB SURGERY BASED ON ONGOING EVAL Plan discussed with: Patient GRANT CHAPA MD May 25, 2024 11:09
--- NOTE | 2024-05-25 11:22 | DVHINCON2 ---
DATE OF CONSULTATION: 05/25/2024 HISTORY OF PRESENT ILLNESS: This patient is 43 years old, coming in with right upper quadrant pain. She has history of liver disease and has been here before and a liver biopsy was done for her as well. We do not know the details on that. This pain has been ongoing for the past few days and she also has nausea, vomiting and yellow coloration of her sclerae, with possible jaundice. PAST MEDICAL HISTORY: Liver disease. PAST SURGICAL HISTORY: Appendectomy. PHYSICAL EXAMINATION: VITAL SIGNS: Afebrile, stable signs. HEENT: No evidence of pallor. She is jaundiced. No cyanosis. NECK: Supple, nontender with no thyromegaly or lymphadenopathy. CHEST AND LUNGS: Clear. HEART: Within normal limits. ABDOMEN: Soft and tender in the right upper quadrant, with minimal rebound. EXTREMITIES: Unremarkable. NEUROLOGIC: Unchanged. CLINICAL IMPRESSION: Rule out acute cholecystitis, rule out a CBD stone and rule out liver issues. PLAN: Will be to consider MRCP to determine the need for ERCP and then followed by possible gallbladder surgery as indicated based upon ongoing evaluation. MD AYO Shields/ELIZABETH TID: [id number] RECEIPT: [id number] cc: Rochelle Neville
[2024-05-25] MEDS: POTASSIUM CHL 20MEQ/50ML 50 ML IV ONE (12:36)
--- NOTE | 2024-05-25 14:15 | DVHINCON2 ---
GI Consult Consult Note GI consult note Date of Consultation: 05/25/2024 Chief Complaint: Acute cholecystitis Referring Physician: Dr. Neville H&P: 43-year-old female with past medical history of liver disease presented to the ER with complains of right upper quadrant abdominal pain with nausea and vomiting and has also noticed yellow discoloration of sclerae for the last two days. Patient complaining of right-sided abdominal pain for the past three days co licky in nature and in severe pain per patient Patient has nausea and vomiting denies hematemesis Patient denies alcohol use. No Tylenol use Patient diagnosed with autoimmune hepatitis, treated with ursodiol, gastro group, but has not been able to follow-up due to insurance issues Past Medical History: Autoimmune hepatitis Past Surgical History: Appendectomy Social History: NO smoking, drinking ETOH and use of illegal drugs. Family History: Noncontributory Review of Systems: Constitutional: no fever, chill, weight loss HEENT:+scleral icterus Heart: no chest pain, no chest pressure Lung: no cough, no dyspnea with exertion Abdomen: see HPI Physical exam: General: NAD, AAOX3 Chest: lung diaz clear to auscultation Heart: RRR, no murmur Abdomen: Moderate right upper quadrant tenderness to palpation, +BS Labs: Labs Test 05/25/24 04:55 05/24/24 20:47 05/24/24 12:48 05/24/24 11:40 Range/Units White Blood Count 3.2 L 4.4-10.8 10^3/uL Red Blood Count 3.41 L 4.0-5.20 10^6/uL Hemoglobin 11.5 L 12.2-16.2 g/dL Hematocrit 32.7 L 36.0-46.0 % Mean Corpuscular Volume 95.8 80.0-100.0 fL Mean Corpuscular Hemoglobin 33.7 H 28.0-32.0 pg Mean Corpuscular Hemoglobin Concent 35.2 32.0-36.0 g/dL Red Cell Distribution Width 16.2 H 11.8-14.3 % Platelet Count 129 L 140-450 10^3/uL Mean Platelet Volume 9.7 6.9-10.8 fL Neutrophils (%) (Auto) 50.4 37.0-80.0 % Lymphocytes (%) (Auto) 37.3 10.0-50.0 % Monocytes (%) (Auto) 6.3 0.0-12.0 % Eosinophils (%) (Auto) 4.3 0.0-7.0 % Basophils (%) (Auto) 1.7 0.0-2.0 % Neutrophils # (Auto) 1.6 1.6-8.6 10 ^3/uL Lymphocytes # (Auto) 1.2 0.4-5.4 10 ^3/uL Monocytes # (Auto) 0.2 0-1.3 10 ^3/uL Eosinophils # (Auto) 0.1 0-0.8 10 ^3/uL Basophils # (Auto) 0.1 0-0.2 10 ^3/uL Nucleated Red Blood Cells 0.0 % Sodium Level 137 136-145 mmol/L Potassium Level 3.4 L 3.5-5.1 mmol/L Chloride Level 101 98-107 mmol/L Carbon Dioxide Level 27 20-31 mmol/L Anion Gap 9 5-15 Blood Urea Nitrogen 14 9-23 mg/dL Creatinine 0.57 0.550-1.02 mg/dL Glomerular Filtration Rate Calc 116 >90 mL/min BUN/Creatinine Ratio 24.6 H 10.0-20.0 Serum Glucose 82 74-106 mg/dL Calcium Level 9.2 8.7-10.4 mg/dL Total Bilirubin 7.6 H 0.2-1.0 mg/dL Aspartate Amino Transferase (AST) 142 H 13-40 U/L Alanine Aminotransferase (ALT) 113 H 7-40 U/L Alkaline Phosphatase 851 H 46-116 U/L Total Protein 7.1 5.7-8.2 g/dL Albumin 3.3 3.2-4.8 g/dL Prothrombin Time 10.8 9.3-11.8 sec Prothrombin Time INR 1.02 0.9-1.15 Activated Partial Thromboplast Time 27.5 24.5-34.5 SEC Lipase 108 H 12-53 U/L Thyroid Stimulating Hormone (TSH) 2.71 0.55-4.78 uIU/mL Urine Color Dark-yellow Yellow Urine Clarity Turbid H Clear Urine pH 5.5 5.0-9.0 Urine Specific [place] 1.023 1.001-1.035 Urine Protein Negative Negative Urine Ketones Negative Negative Urine Blood Negative Negative /uL Urine Nitrite Negative Negative Urine Bilirubin 2+ H Negative Urine Urobilinogen 4 H Negative mg/dL Urine Leukocyte Esterase Negative Negative /uL Urine RBC 1 0 - 4 /hpf Urine Microscopic WBC < 1 0-5 /HPF Urine Squamous Epithelial Cells Mod <5 /hpf Urine Bacteria Few H None Seen /hpf Urine Hyaline Casts Few 0 - 2 /lpf Urine Mucus Few None Seen Urine Glucose Normal Normal mg/dL Urine Test Negative Negative Imaging: Abdominal ultrasound IMPRESSION: Gallstones and gallbladder sludge. Gallbladder wall thickening measuring 4 mm. Sonographic graves's sign is reportedly positive. Findings can be seen in the setting of acute cholecystitis. CT abdomen pelvis IMPRESSION: 1. The gallbladder is contracted with thickened miller and contains a 2.5 cm gallstone along with Hyperdense sludge. There are several small gallstones seen in the proximal common bile duct measuring up to 5 mm. There is mild central intrahepatic biliary ductal dilatation. 2. 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 Assessment: Acute abdominal pain Acute cholecystitis Pancreatitis History of autoimmune hepatitis Varices Plan: Discussed with Dr. Dunbar MRCP MRI Pain management per hospitalist Monitor labs We will continue to monitor the patient Thank you for this consult Date of Service: May 25, 2024 Billing Provider: RIZWAN ZAMORA Common Visit Codes: CONSULT ONLY Consultation Codes: [id number] CONSULT <60MIN RIZWAN ZAMORA May 25, 2024 14:15
[2024-05-25] MEDS: LORazepam 2MG/ML-1ML VIAL IM ONE (16:26)
--- NOTE | 2024-05-25 18:02 | DVHPNRES ---
Progress Note Date Seen: May 25, 2024 Resident Creating Document: SAMUEL CALDERON RESIDENT Medical Necessity Reason Pt with a Central, PICC or Fol: No Subjective Review of Systems Patient was seen and examined on the bedside. She is alert oriented x3. Complain of Right upper quadrant pain and nausea. CT abdomen pelvis with IV contrast demonstrated The gallbladder is contracted with thickened miller and contains a 2.5 cm gallstone along with Hyperdense sludge. There are several small gallstones seen in the proximal common bile duct measuring up to 5 mm. There is mild central intrahepatic biliary ductal dilatation. 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 GI evaluated the patient and recommended MRCP MRI . Surgery also evaluated the patient and recommended possible gallbladder surgery after ongoing evaluation. Objective vital signs Vital Sign Date Time Temp Pulse Resp B/P (MAP) Pulse Ox O2 Delivery O2 Flow Rate FiO2 05/25/24 13:14 74 20 99/51 05/25/24 13:00 97.4 100 97.4 05/25/24 07:02 Room Air* 0 21 Total Intake and Output 05/24/24 05/24/24 05/25/24 15:00 23:00 07:00 Intake Total 500 ml 100 ml Balance 500 ml 100 ml medications Current Medications Medications Dose Ordered Sig/Sunday Route Start Time Stop Time Status Last Admin Dose Admin Lactated Ringer's 1,000 ml @ 125 mls/hr Q8H IV 05/24/24 19:00 05/25/24 16:00 125 MLS/HR Ondansetron HCl 4 mg Q8HPRN IV 05/24/24 22:00 05/25/24 16:00 4 MG Pantoprazole Sodium 40 mg DAILY IV 05/25/24 10:00 05/25/24 09:17 40 MG Morphine Sulfate 2 mg Q6HPRN IV 05/25/24 00:00 05/25/24 12:44 2 MG Ceftriaxone Sodium 50 ml @ 100 mls/hr DAILY@09 IV 05/25/24 09:00 05/25/24 09:17 100 MLS/HR Examination Physical examination: General Appearance: Alert, Oriented X3, Cooperative, mild distress ( Icteric appearance) HEENT: Atraumatic, PERRLA, EOMI, Mucous membrane moist/pink Respiratory: Clear to auscultation, Normal air movement Cardiovascular: Regular rate, Normal S1, Normal S2, No murmurs, no chest wall tenderness Abdominal: Normal bowel sounds, Soft, rt upper quadrant tenderness, No hepatospenomegaly, No masses Extremities: No clubbing, No cyanosis, No edema, Normal pulses, No tenderness/swelling Skin: No rashes, No breakdown, No significant lesion Neuro: Normal gait, Normal speech, Strength at 5/5 X4 ext, Normal tone, Sensation intact, Cranial nerves 3-12 NL, Reflexes 2+ Psych/Mental Status: Mental status NL, Mood NL laboratory and microbiology Laboratory Tests 05/25/24 04:55 Test 05/25/24 04:55 Range/Units Serum Glucose 82 74-106 mg/dL Labs and/or images reviewed: Labs reviewed by me, Image(s) reviewed by me Problem List/Assessment/Plan Problem List/Assessment/Plan Assessment and plan: # Acute cholecystitis with possible acute cholangitis # History of acute biliary cholangitis 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 There are several small gallstones seen in the proximal common bile duct measuring up to 5 mm. There is mild central intrahepatic biliary ductal dilatation. 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 - Ultrasound of the gallbladder demonstrated Gallstones and gallbladder sludge. Gallbladder wall thickening measuring 4 mm. Sonographic graves's sign is reportedly positive. Findings can be seen in the setting of acute cholecystitis. - Lipase is 108 - IV lactated Ringer's at 1:25 a.m. mL/hours - IV morphine 2 mg Q 6 p.r.n. - IV ondansetron 4 mg Q 8 p.r.n. - IV Protonix 40 mg IV daily - IV ceftriaxone 1 g daily - GI recommended MRCP MRI and surgery mentioned possible gallbladder surgery after ongoing evaluation - Pending hepatitis panel. # Possible acute complicated cystitis - Pending urinalysis # DVT prophylaxis - Not recommended Goal of care discussed with the patient for more than 20 minutes full code. Plan discussed with Dr. Earl Plan discussed with: Patient, Other My Orders My Orders Orders - SAMUEL CALDERON RESIDENT Procedure Category Date Status Time Admit ADMIT 05/24/24 Transmitted 18:51 Comprehensive LAB 05/24/24 In Process Hepatitis Panel 18:57 Lactated Ringer's PHA 05/24/24 In Process 19:00 Ondansetron Hcl PHA 05/24/24 In Process (Zofran) 22:00 Pantoprazole PHA 05/25/24 In Process (Protonix) 10:00 Morphine Sulfate PHA 05/25/24 In Process Injection 00:00 * Surgical Consult CONS 05/24/24 Transmitted * Gi D[facility] Mold [facility] Pusher CONS 05/24/24 Transmitted 18:58 Ceftriaxone 1gm/50ml PHA 05/25/24 In Process D5w (Rocephin) 09:00 Npo (Nothing By DIET 05/25/24 Transmitted Mouth) Diet Breakfast Ct Ab Pel With Iv Con CT 05/25/24 Resulted Only 06:17 Chest Xray 1 View XY 05/25/24 Resulted 06:25 Date of Service: May 25, 2024 Billing Provider: CICI EARL MD Common Visit Codes: [id number] INP/OBS CARE(HIGH) SAMUEL CALDERON RESIDENT May 25, 2024 18:01 CICI EARL MD May 25, 2024 18:25
--- NOTE | 2024-05-25 20:15 | DVH ---
MRI Abdomen, MRCP without IV Contrast Exam Date: 05/25/2024 05:04 PM Comparison: CT dated 05/25/2024 History: R/O CBD STONE ELEVATED BILIRUBIN GALLSTONES Technique: Multisequence multiplanar MRI images were obtained of the abomen. MRCP including 3D SPACE, Radial 2D slabs and SPACE 3D MIP images Findings: Liver: The liver is normal in size without focal lesions. Normal liver contour. Spleen: Splenomegaly. Pancreas: The pancreas is normal in appearance without focal lesions. Gallbladder and ducts: Cholelithiasis. Gallbladder wall thickening. Mild pericholecystic edema. The cystic duct, right and left hepatic ducts, common hepatic duct, and common bile ducts are unremarkab le. The pancreatic duct is within normal limits. Adrenal glands: Unremarkable. Kidneys: Normal enhancement without suspicious lesions or hydronephrosis. Visualized bowel: Grossly unremarkable. Vasculature: Unremarkable. Lymphadenopathy: No evidence for lymphadenopathy. Ascites: Absent. Musculoskeletal: Bone marrow signal is normal. IMPRESSION: Findings are suspicious for acute cholecystitis. MRCP sequences are motion degraded. Grossly, no obstructing biliary stone or mass. No biliary duct obstruction.
--- NOTE | 2024-05-25 22:59 | DVHPN2 ---
Progress Note Date Seen: May 25, 2024 Medical Necessity Reason Pt with a Central, PICC or Fol: No Objective vital signs Vital Sign Date Time Temp Pulse Resp B/P (MAP) Pulse Ox O2 Delivery O2 Flow Rate FiO2 05/25/24 21:00 97.4 77 16 111/64 (80) 91 97.4 05/25/24 07:02 Room Air* 0 21 Total Intake and Output 05/24/24 05/24/24 05/25/24 15:00 23:00 07:00 Intake Total 500 ml 100 ml Balance 500 ml 100 ml medications Current Medications Medications Dose Ordered Sig/Sunday Route Start Time Stop Time Status Last Admin Dose Admin Lactated Ringer's 1,000 ml @ 125 mls/hr Q8H IV 05/24/24 19:00 05/25/24 18:57 125 MLS/HR Ondansetron HCl 4 mg Q8HPRN IV 05/24/24 22:00 05/25/24 16:00 4 MG Pantoprazole Sodium 40 mg DAILY IV 05/25/24 10:00 05/25/24 09:17 40 MG Morphine Sulfate 2 mg Q6HPRN IV 05/25/24 00:00 05/25/24 18:58 2 MG Ceftriaxone Sodium 50 ml @ 100 mls/hr DAILY@09 IV 05/25/24 09:00 05/25/24 09:17 100 MLS/HR laboratory and microbiology Laboratory Tests 05/25/24 04:55 Test 05/25/24 04:55 Range/Units Serum Glucose 82 74-106 mg/dL Problem List/Assessment/Plan Problem List/Assessment/Plan AFEBRILE VSS ABD SOFT LFT ELEVATED CBD STONE PER CT SCAN MRCP NOT CONFIRMING REPEAT CBC CMP AM CONSIDER TRANSFER TO HIGHER LEVEL OF CARE FOR ERCP INDICATED Plan discussed with: Other GRANT CHAPA MD May 25, 2024 22:59
[2024-05-26 05:00] VITALS: BP 97/55; PULSE 85; RESP 17; TEMP 97.7; O2SAT 94
[2024-05-26 06:59] LABS: Basophils # (auto) 0.1 10 ^3/uL (0-0.2); Basophils % (auto) 2.2 % (0.0-2.0); Eosinophils # (auto) 0.1 10 ^3/uL (0-0.8); Eosinophils % (auto) 3.7 % (0.0-7.0); Hematocrit 31.3 % (36.0-46.0); Hemoglobin 10.7 g/dL (12.2-16.2); Lymphocytes # (auto) 0.9 10 ^3/uL (0.4-5.4); Lymphocytes % (auto) 34.6 % (10.0-50.0); Mean Corpuscular Hemoglobin 32.7 pg (28.0-32.0); Mean Corpuscular Volume 96.2 fL (80.0-100.0); Monocytes # (auto) 0.3 10 ^3/uL (0-1.3); Monocytes % (auto) 10.9 % (0.0-12.0); Neutrophils # (auto) 1.2 10 ^3/uL (1.6-8.6); Neutrophils % (auto) 48.6 % (37.0-80.0); Nucleated Red Blood Cells % 0.2 %; Platelet Count (auto) 118 10^3/uL (140-450); Red Blood Cells 3.26 10^6/uL (4.0-5.20); Red Cell Distribution Width 15.8 % (11.8-14.3); White Blood Cell 2.6 10^3/uL (4.4-10.8)
[2024-05-26 07:07] LABS: Anion Gap 7 (5-15); Blood Urea Nitrogen 11 mg/dL (9-23); Calcium 8.8 mg/dL (8.7-10.4); Carbon Dioxide 28 mmol/L (20-31); Chloride 103 mmol/L (98-107); Glucose 81 mg/dL (74-106); Sodium 138 mmol/L (136-145)
[2024-05-26 07:11] LABS: Alanine Aminotransferase 87 U/L (7-40); Albumin 2.8 g/dL (3.2-4.8); Alkaline Phosphatase 723 U/L (46-116); Aspartate Aminotransferase 105 U/L (13-40); Bilirubin, Total 6.7 mg/dL (0.2-1.0)
[2024-05-26 08:00] VITALS: PULSE 73; RESP 16; O2SAT 98
[2024-05-26 08:31] VITALS: BP 98/44; PULSE 73; RESP 16; TEMP 98.2; O2SAT 98
[2024-05-26 12:35] LABS: Hepatitis B Surface Antibody Negative (Negative)
[2024-05-26 12:36] LABS: Hepatitis A Total Antibody Negative (Negative); Hepatitis B Core Total AB Negative (Negative); Hepatitis B Surface Antigen Negative (Negative)
[2024-05-26 12:37] LABS: Hepatitis C Antibody Negative (Negative)
[2024-05-26 13:00] VITALS: BP 104/54; PULSE 89; RESP 17; TEMP 98.2; O2SAT 98
[2024-05-26] MEDS: ACETAMINOPHEN 325 MG TAB PO ONE (13:30)
[2024-05-26] MEDS: KETOROLAC TROMETH 30 MG/ML 1ML VIAL IV ONE (13:30)
--- NOTE | 2024-05-26 16:24 | DVHDSRES ---
Discharge Summary Date of Admission Resident Creating Document: SIRI BARNES RESIDENT May 24, 2024 at 18:51 Date of Discharge: May 26, 2024 Admitting Diagnosis Acute Abdominal pain Wounds: No wounds present at this time. Labs/Diagnostic Data: Laboratory Results Test 05/26/24 06:04 05/24/24 20:47 05/24/24 12:48 05/24/24 11:40 White Blood Count 2.6 10^3/uL (4.4-10.8) Red Blood Count 3.26 10^6/uL (4.0-5.20) Hemoglobin 10.7 g/dL (12.2-16.2) Hematocrit 31.3 % (36.0-46.0) Mean Corpuscular Volume 96.2 fL (80.0-100.0) Mean Corpuscular Hemoglobin 32.7 pg (28.0-32.0) Mean Corpuscular Hemoglobin Concent 34.0 g/dL (32.0-36.0) Red Cell Distribution Width 15.8 % (11.8-14.3) Platelet Count 118 10^3/uL (140-450) Mean Platelet Volume 9.6 fL (6.9-10.8) Neutrophils (%) (Auto) 48.6 % (37.0-80.0) Lymphocytes (%) (Auto) 34.6 % (10.0-50.0) Monocytes (%) (Auto) 10.9 % (0.0-12.0) Eosinophils (%) (Auto) 3.7 % (0.0-7.0) Basophils (%) (Auto) 2.2 % (0.0-2.0) Neutrophils # (Auto) 1.2 10 ^3/uL (1.6-8.6) Lymphocytes # (Auto) 0.9 10 ^3/uL (0.4-5.4) Monocytes # (Auto) 0.3 10 ^3/uL (0-1.3) Eosinophils # (Auto) 0.1 10 ^3/uL (0-0.8) Basophils # (Auto) 0.1 10 ^3/uL (0-0.2) Nucleated Red Blood Cells 0.2 % Sodium Level 138 mmol/L (136-145) Potassium Level 4.0 mmol/L (3.5-5.1) Chloride Level 103 mmol/L (98-107) Carbon Dioxide Level 28 mmol/L (20-31) Anion Gap 7 (5-15) Blood Urea Nitrogen 11 mg/dL (9-23) Creatinine 0.58 mg/dL (0.550-1.02) Glomerular Filtration Rate Calc 115 mL/min (>90) BUN/Creatinine Ratio 19.0 (10.0-20.0) Serum Glucose 81 mg/dL (74-106) Calcium Level 8.8 mg/dL (8.7-10.4) Total Bilirubin 6.7 mg/dL (0.2-1.0) Aspartate Amino Transferase (AST) 105 U/L (13-40) Alanine Aminotransferase (ALT) 87 U/L (7-40) Alkaline Phosphatase 723 U/L (46-116) Total Protein 6.0 g/dL (5.7-8.2) Albumin 2.8 g/dL (3.2-4.8) Prothrombin Time 10.8 sec (9.3-11.8) Prothrombin Time INR 1.02 (0.9-1.15) Activated Partial Thromboplast Time 27.5 SEC (24.5-34.5) Lipase 108 U/L (12-53) Thyroid Stimulating Hormone (TSH) 2.71 uIU/mL (0.55-4.78) Hepatitis A Antibody Total Negative (Negative) Hepatitis B Surface Antigen Negative (Negative) Hepatitis B Surface Antibody Negative (Negative) Hepatitis B Core Total Antibody Negative (Negative) Hepatitis C Antibody Negative (Negative) Urine Color Dark-yellow (Yellow) Urine Clarity Turbid (Clear) Urine pH 5.5 (5.0-9.0) Urine Specific [place] 1.023 (1.001-1.035) Urine Protein Negative (Negative) Urine Ketones Negative (Negative) Urine Blood Negative /uL (Negative) Urine Nitrite Negative (Negative) Urine Bilirubin 2+ (Negative) Urine Urobilinogen 4 mg/dL (Negative) Urine Leukocyte Esterase Negative /uL (Negative) Urine RBC 1 /hpf (0 - 4) Urine Microscopic WBC < 1 /HPF (0-5) Urine Squamous Epithelial Cells Mod /hpf (<5) Urine Bacteria Few /hpf (None Seen) Urine Hyaline Casts Few /lpf (0 - 2) Urine Mucus Few (None Seen) Urine Glucose Normal mg/dL (Normal) Urine Test Negative (Negative) Other Laboratory Tests 05/26/24 06:04 Brief Hx & Hospital Course: This is a 43-year-old female with past medical history of liver disease presented to the ED with a chief complaint of right upper quadrant abdominal pain with nausea and vomiting and also yellow discoloration of the sclera for last 2 days prior to this admission. According to the patient the abdominal pain started 2 days before coming to the ED, which was sharp colicky pain, 8/10, radiates to the back, associated with nausea, vomiting and yellow coloration of the sclera. She also complaint of burning sensation and foul smelly urine for the same duration. she mentioned that she has a intermittent jaundice for last 1 year and her primary care [place] [facility] [place]. Upon admission, she denied fever, chills, chest pain, shortness of breath, altered bowel habit, recent sick contact or any recent traveling. Patient underwent gallbladder ultrasound which showed signs of acute cholecystitis. Ct of the abdomen showe that the gallbladder was contracted with thickened miller and contains a 2.5 cm gallstone along with Hyperdense sludge. There are several small gallstones seen in the proximal common bile duct measuring up to 5 mm. There is mild central intrahepatic biliary ductal dilatation. MRCP was performed next which showed signs of acute cholecystitis but no obstructing biliary stone or mass. No biliary duct obstruction. Surgery saw the patient and recommended transfer the patient to higher level of care for possible choledocholithiasis due to persistent elevation of AST/AST and alkaline phosphatase. We will transfer the patient to higher level of care at this time. Patient still reporting abdominal tenderness mainly in the right flank and right upper quadrant. Patient still looks jaundice. Patient agrees and understands the plan. Consults/Reason for consult Surgery for cholecystitis Operations or Procedures INDICATION: pain TECHNIQUE: Multiple real-time sonographic images were obtained of the right upper quadrant. COMPARISON: ABDL on DOS: 02/21/22, ABDOMEN LIMITED on DOS: 02/21/22, ABDOMEN LIMITED on DOS: 02/19/22, ABDL on DOS: 02/19/22 FINDINGS: The liver demonstrates homogenous echotexture without focal mass lesions. The liver measures 13 cm. There is no intrahepatic or extrahepatic ductal dilatation. The common duct measures not well visualized due to obscuration from bowel gas. The gallbladder is without evidence of stone or sludge. The gallbladder wall measures 4 mm and is within normal limits. Sonographic Mars's sign is reportedly positive. The right kidney measures 10.8 cm. The right kidney is normal in contour, size, and shape. The echogenicity is normal. There is no hydronephrosis. The pancreas is not well visualized due to overlying bowel gas. IMPRESSION: Gallstones and gallbladder sludge. Gallbladder wall thickening measuring 4 mm. Sonographic mars's sign is reportedly positive. Findings can be seen in the setting of acute cholecystitis. Exam: CT CT AB PEL WITH IV CON ONLY History: Acute cholecystitis with possible cholangitis TECHNIQUE: Multiple contiguous axial CT images of the abdomen and pelvis were obtained with intravenous contrast. The images were reformatted to generate coronal and sagittal reconstructions. 100 cc of Omnipaque 350 contrast was injected intravenously. All CT scans at this medical facility are performed using dose modulation techniques as appropriate to a performed exam including the following:Automated exposure control was utilized; adjustment of the MA and/or KV according to patient size; and use of iterative reconstruction technique. Radiation Dose Information: CT Dose: CTDI volume is 15.27 mGy. Dose-length product is 766.33 mGy*cm Comparison: 02/18/2022 FINDINGS: The gallbladder is contracted with thickened appearing miller. There is a 2.5 cm calcified gallstone along with hyperdense sludge in the gallbladder. There are several small gallstones seen in the proximal common bile duct measuring up to 5 mm. There is mild central intrahepatic biliary ductal dilatation. There is no significant pericholecystic fluid. The spleen appears within normal limits. There are again multiple prominent perisplenic varices with likely splenorenal shunting. The liver, pancreas, kidneys, adrenal glands, appear within normal limits. There is no evidence of abdominal lymphadenopathy. There is no free fluid or free air. There is small hiatal hernia. The small and large bowel loops demonstrate normal caliber and distribution. The appendix is not seen in the right lower quadrant abdomen. There are no secondary signs of acute appendicitis. The abdominal aorta and IVC appear within normal limits. The bladder appears within normal limits the degree of distention. The uterus is retroverted and grossly appears within normal limits. There is no evidence of a pelvic mass or lymphadenopathy. There is no free fluid collection. Lung bases are clear. There is no acute osseous abnormality. IMPRESSION: 1. The gallbladder is contracted with thickened miller and contains a 2.5 cm gallstone along with Hyperdense sludge. There are several small gallstones seen in the proximal common bile duct measuring up to 5 mm. There is mild central intrahepatic biliary ductal dilatation. 2. 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 CHEST RADIOGRAPH Indication: Chest pain Technique: Single frontal view of the chest was obtained Comparison: CHEST PORTABLE on DOS: 02/18/22, CXRP on DOS: 02/18/22 FINDINGS: Lines and Tubes: None Lungs: No focal consolidation. Pleura: No effusion. No pneumothorax. Cardiomediastinal contours: Unremarkable Bones: No acute osseous abnormality. IMPRESSION: No acute cardiopulmonary disease. MRI Abdomen, MRCP without IV Contrast Exam Date: 05/25/2024 05:04 PM Comparison: CT dated 05/25/2024 History: R/O CBD STONE ELEVATED BILIRUBIN GALLSTONES Technique: Multisequence multiplanar MRI images were obtained of the abomen. MRCP including 3D SPACE, Radial 2D slabs and SPACE 3D MIP images Findings: Liver: The liver is normal in size without focal lesions. Normal liver contour. Spleen: Splenomegaly. Pancreas: The pancreas is normal in appearance without focal lesions. Gallbladder and ducts: Cholelithiasis. Gallbladder wall thickening. Mild pericholecystic edema. The cystic duct, right and left hepatic ducts, common hepatic duct, and common bile ducts are unremarkable. The pancreatic duct is within normal limits. Adrenal glands: Unremarkable. Kidneys: Normal enhancement without suspicious lesions or hydronephrosis. Visualized bowel: Grossly unremarkable. Vasculature: Unremarkable. Lymphadenopathy: No evidence for lymphadenopathy. Ascites: Absent. Musculoskeletal: Bone marrow signal is normal. IMPRESSION: Findings are suspicious for acute cholecystitis. MRCP sequences are motion degraded. Grossly, no obstructing biliary stone or mass. No biliary duct obstruction. Condition at Discharge: Stable Final Diagnosis/Problems List Acute abdominal pain due to Acute cholecystitis with possible acute cholangitis Possible Choledocolithiasis Hyperbilirubinemia with transaminitis Possible acute pancreatitis Pancytopenia likely due to liver cirrhosis Possible acute complicated cystitis Discharge Disposition: Acute Care Facility Discharge Instruct/Medications Diet: Regular Activity: No Restrictions, As Tolerated Follow Up/Referral: F/U after DC from acute facility with PCP Medications: Continue current medications Discharge Statement: "Patient was advised to return to the ER or call 911 if any headaches, dizziness, shortness of breath, chest pain, abdominal pain, bleeding, fevers, or worsening of medical condition. Patient was counseled about treatment plan, medications, possible side effects, patientverbalized understanding. All questions were answered to the best of my ability. This discharge took greater then 30 minutes in planning, reviewing documentation, counseling the patient, and discussing with other team members." ASSESSMENT ASSESSMENT Assessment Acute abdominal pain due to Acute cholecystitis with possible acute cholangitis Possible Choledocolithiasis Hyperbilirubinemia with transaminitis Possible acute pancreatitis Pancytopenia likely due to liver cirrhosis Possible acute complicated cystitis Date of Service: May 26, 2024 Billing Provider: CICI MORENO MD Common Visit Codes: 55052-NSC/OBS DISCH DAY >30min SIRI BARNES RESIDENT May 26, 2024 16:24 CICI MORENO MD May 26, 2024 19:52
[2024-05-26 16:48] VITALS: BP 97/45; PULSE 85; RESP 17; TEMP 98.1; O2SAT 100
--- NOTE | 2024-05-26 21:05 | DVHPN2 ---
Progress Note - Dictate Date Seen: May 26, 2024 Medical Necessity Reason Pt with a Central, PICC or Fol: No Subjective Patient seen at bedside Resting comfortably Abdominal pain has improved Patient would like to advance diet Liver enzymes are trending down Patient states she has a history of underlying autoimmune hepatitis possible PBC Patient was maintained on ursodiol as an outpatient by her roller maker However she recently ran out of it and currently she is not getting it in the hospital vital signs Vital Sign Date Time Temp Pulse Resp B/P (MAP) Pulse Ox O2 Delivery O2 Flow Rate FiO2 05/26/24 18:33 67 17 106/72 05/26/24 16:48 98.1 100 98.1 05/26/24 08:00 Room Air* 0 21 Total Intake and Output 05/25/24 05/25/24 05/26/24 15:00 23:00 07:00 Intake Total 0 ml 100 ml Balance 0 ml 100 ml medications Current Medications Medications Dose Ordered Sig/Sunday Route Start Time Stop Time Status Last Admin Dose Admin Lactated Ringer's 1,000 ml @ 125 mls/hr Q8H IV 05/24/24 19:00 05/26/24 19:24 125 MLS/HR Ondansetron HCl 4 mg Q8HPRN IV 05/24/24 22:00 05/26/24 11:23 4 MG Pantoprazole Sodium 40 mg DAILY IV 05/25/24 10:00 05/26/24 10:31 40 MG Morphine Sulfate 2 mg Q6HPRN IV 05/25/24 00:00 05/26/24 18:03 2 MG Ceftriaxone Sodium 50 ml @ 100 mls/hr DAILY@09 IV 05/25/24 09:00 05/26/24 10:31 100 MLS/HR objective General: NAD, AAOX3; slight icterus Chest: lung diaz clear to auscultation Heart: RRR, no murmur Abdomen: minimal right upper quadrant tenderness to palpation, +BS Ext no c/c/e laboratory and microbiology Laboratory Tests 05/26/24 06:04 Test 05/26/24 06:04 Range/Units Serum Glucose 81 74-106 mg/dL Problems(with codes): (1) Intractable abdominal pain (2) Acute cholecystitis (3) Elevated liver enzymes (4) Elevated alkaline phosphatase level (5) Hyperbilirubinemia (6) Liver cirrhosis (7) Portal hypertension Prognosis Plan liver enzymes are trending down today Patient was being treated by her roller maker in [facility] with ursodiol I will put her back on ursodiol 300 mg p.o. 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
[2024-05-27] VITALS (7 sets, daily range): BP systolic 91–114; BP diastolic 38–58; PULSE 65–82; RESP 14–94; TEMP 97.7–98.2; O2SAT 94–100
[2024-05-27] MEDS: URSODIOL 300 MG CAP PO SCH (00:12)
[2024-05-27 07:58] LABS: Basophils # (auto) 0 10 ^3/uL (0-0.2); Basophils % (auto) 0.9 % (0.0-2.0); Eosinophils # (auto) 0.1 10 ^3/uL (0-0.8); Eosinophils % (auto) 3.5 % (0.0-7.0); Hematocrit 30.1 % (36.0-46.0); Hemoglobin 10.2 g/dL (12.2-16.2); Lymphocytes # (auto) 1.1 10 ^3/uL (0.4-5.4); Lymphocytes % (auto) 44.8 % (10.0-50.0); Mean Corpuscular Hemoglobin 32.8 pg (28.0-32.0); Mean Corpuscular Hgb Conc. 33.8 g/dL (32.0-36.0); Monocytes # (auto) 0.2 10 ^3/uL (0-1.3); Monocytes % (auto) 8.2 % (0.0-12.0); Neutrophils # (auto) 1.1 10 ^3/uL (1.6-8.6); Neutrophils % (auto) 42.6 % (37.0-80.0); Nucleated Red Blood Cells % 0.2 %; Platelet Count (auto) 104 10^3/uL (140-450); Red Cell Distribution Width 15.9 % (11.8-14.3); White Blood Cell 2.5 10^3/uL (4.4-10.8)
[2024-05-27 08:20] LABS: Anion Gap 6 (5-15); Blood Urea Nitrogen 10 mg/dL (9-23); Carbon Dioxide 27 mmol/L (20-31); Chloride 104 mmol/L (98-107); Glucose 87 mg/dL (74-106); Sodium 137 mmol/L (136-145); Total Protein 5.8 g/dL (5.7-8.2)
[2024-05-27 08:22] LABS: Alanine Aminotransferase 84 U/L (7-40); Albumin 2.8 g/dL (3.2-4.8); Alkaline Phosphatase 680 U/L (46-116); Aspartate Aminotransferase 107 U/L (13-40); Bilirubin, Total 5.9 mg/dL (0.2-1.0); Calcium 8.6 mg/dL (8.7-10.4); Potassium 3.4 mmol/L (3.5-5.1)
--- NOTE | 2024-05-27 11:57 | DVHPN2 ---
Progress Note Date Seen: May 27, 2024 Medical Necessity Reason Pt with a Central, PICC or Fol: No Objective vital signs Vital Sign Date Time Temp Pulse Resp B/P (MAP) Pulse Ox O2 Delivery O2 Flow Rate FiO2 05/27/24 09:00 97.8 75 14 104/51 (68) 94 97.8 05/26/24 20:00 Room Air* 0 21 Total Intake and Output 05/26/24 05/26/24 05/27/24 15:00 23:00 07:00 Intake Total 800 ml 1200 ml Balance 800 ml 1200 ml medications Current Medications Medications Dose Ordered Sig/Sunday Route Start Time Stop Time Status Last Admin Dose Admin Lactated Ringer's 1,000 ml @ 125 mls/hr Q8H IV 05/24/24 19:00 05/27/24 03:00 125 MLS/HR Ondansetron HCl 4 mg Q8HPRN IV 05/24/24 22:00 05/27/24 05:57 4 MG Pantoprazole Sodium 40 mg DAILY IV 05/25/24 10:00 05/27/24 09:16 40 MG Morphine Sulfate 2 mg Q6HPRN IV 05/25/24 00:00 05/27/24 06:03 2 MG Ceftriaxone Sodium 50 ml @ 100 mls/hr DAILY@09 IV 05/25/24 09:00 05/27/24 09:16 100 MLS/HR Ursodiol 300 mg BID PO 05/26/24 22:00 05/27/24 09:16 300 MG laboratory and microbiology Laboratory Tests 05/27/24 06:35 Test 05/27/24 06:35 Range/Units Serum Glucose 87 74-106 mg/dL Problem List/Assessment/Plan Problem List/Assessment/Plan AFEBRILE VSS ABD SOFT LFT ELEVATED BUT TRENDING DOWN CBD STONE PER CT SCAN MRCP NOT CONFIRMING REPEAT CBC CMP AM CONSIDER TRANSFER TO HIGHER LEVEL OF CARE FOR ERCP INDICATED Plan discussed with: Patient GRANT CHAPA MD May 27, 2024 11:57
--- NOTE | 2024-05-27 12:03 | DVHPN2 ---
Subjective Seen and examined at bedside, patient to be transferred for ERCP to [facility]. I spoke with Dr. Rebekah Valenzuela who accepted the patient. Had a lengthy discussion with the patient at bedside, explained disease process and plan for care. Advised patient needs to be seen by her Packing Line Worker at [facility] upon discharge. Changes from previous H/P or p: No Changes Eyes: No Pain, No Vision change, No Conjunctivae inflammation, No Eyelid inflammation, No Other, No Redness ENT: No Ear pain, No Ear discharge, No Nose pain, No Nose discharge, No Nose congestion, No Mouth pain, No Mouth swelling, No Throat pain, No Throat swelling, No Other Cardiovascular: No Chest Pain, No Palpitations, No Orthopnea, No Paroxysmal Noc. Dyspnea, No Edema, No Lt Headedness, No Other Respiratory: No Cough, No Dry, No Shortness of breath, No SOB with excertion, No Wheezing, No Hemoptysis, No Pleuritic Pain, No Sputum, No Other Gastrointestinal: No Nausea, No Vomiting; Abdominal Pain; No Diarrhea, No Constipation, No Melena, No Hematochezia, No Other Genitourinary: No Dysuria, No Frequency, No Incontinence, No Hematuria, No Retention, No Other Musculoskeletal: No other, No neck pain, No shoulder pain, No arm pain, No back pain, No hand pain, No leg pain, No foot pain Skin: No Rash, No Lesions, No Jaundice, No Bruising, No Other Objective Vitals Vital Signs Date Time Temp Pulse Resp B/P (MAP) Pulse Ox O2 Delivery O2 Flow Rate FiO2 05/27/24 09:00 97.8 75 14 104/51 (68) 94 97.8 05/26/24 20:00 Room Air* 0 21 Intake/Output Intake and Output 05/27/24 06:59 Intake Total 2000 ml Balance 2000 ml Intake Oral 2000 ml # Voids 11 # Bowel Movements 1 General Appearance: Alert, Oriented X3, No acute distress HEENT: Other (jaundice) Lungs: Clear to auscultation, Normal air movement Abdomen: Normal bowel sounds, Soft Psych/Mental Status: Mental status NL Medications Current Medications Medications Dose Ordered Sig/Sunday Route Start Time Stop Time Status Last Admin Dose Admin Lactated Ringer's 1,000 ml @ 125 mls/hr Q8H IV 05/24/24 19:00 05/27/24 03:00 125 MLS/HR Ondansetron HCl 4 mg Q8HPRN IV 05/24/24 22:00 05/27/24 05:57 4 MG Pantoprazole Sodium 40 mg DAILY IV 05/25/24 10:00 05/27/24 09:16 40 MG Morphine Sulfate 2 mg Q6HPRN IV 05/25/24 00:00 05/27/24 06:03 2 MG Ceftriaxone Sodium 50 ml @ 100 mls/hr DAILY@09 IV 05/25/24 09:00 05/27/24 09:16 100 MLS/HR Ursodiol 300 mg BID PO 05/26/24 22:00 05/27/24 09:16 300 MG Laboratory Results Laboratory Tests 05/27/24 06:35 Chemistry Test 05/27/24 06:35 Albumin 2.8 g/dL (3.2-4.8) L Calcium Level 8.6 mg/dL (8.7-10.4) L Total Protein 5.8 g/dL (5.7-8.2) LFT Test 05/27/24 06:35 Alanine Aminotransferase (ALT) 84 U/L (7-40) H Alkaline Phosphatase 680 U/L (46-116) H Aspartate Amino Transferase (AST) 107 U/L (13-40) H Total Bilirubin 5.9 mg/dL (0.2-1.0) H Urinalysis Test 05/24/24 11:40 Urine Color Dark-yellow (Yellow) Urine Clarity Turbid (Clear) H Urine pH 5.5 (5.0-9.0) Urine Specific [place] 1.023 (1.001-1.035) Urine Protein Negative (Negative) Urine Ketones Negative (Negative) Urine Blood Negative /uL (Negative) Urine Nitrite Negative (Negative) Urine Bilirubin 2+ (Negative) H Urine Urobilinogen 4 mg/dL (Negative) H Urine Leukocyte Esterase Negative /uL (Negative) Urine RBC 1 /hpf (0 - 4) Urine Microscopic WBC < 1 /HPF (0-5) Urine Squamous Epithelial Cells Mod /hpf (<5) Urine Bacteria Few /hpf (None Seen) H Urine Hyaline Casts Few /lpf (0 - 2) Urine Mucus Few (None Seen) Urine Glucose Normal mg/dL (Normal) Urine Test Negative (Negative) Assessment/Plan Assessment/Plan Acute abdominal pain due to Acute cholecystitis with possible acute cholangitis Possible Choledocolithiasis Hyperbilirubinemia with transaminitis due to Autoimmune Hepatitis? Possible acute pancreatitis Pancytopenia likely due to liver cirrhosis Possible acute complicated cystitis DC to [facility] for ERCP, Cont Abx Plan discussed with: Patient, Daughter My Orders Orders - CICI MORENO MD Procedure Category Date Status Time * Contact Center Associate CONS 05/27/24 Transmitted Consult Date of Service: May 27, 2024 Billing Provider: CICI MORENO MD Common Visit Codes: [id number] INP/OBS CARE(HIGH) CICI MORENO MD May 27, 2024 12:03
[2024-05-27] MEDS ORDERED: LACTULOSE 20Gm/30ML SOLN PO ONE (16:15)
--- NOTE | 2024-05-27 16:54 | DVHPN2 ---
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 Patient was maintained on ursodiol as an outpatient by her business analyst ecommerce Pt was started on ursodiol last night;Bilirubin down to 5.6 Mild pancytopenia likely related to underlying chronic liver disease Initial CT ABd suggestive of multiple small proximal CBD stones MRCP did not confirm this finding but because of high bilirubin and RUQ pain recommend ERCP vital signs Vital Sign Date Time Temp Pulse Resp B/P (MAP) Pulse Ox O2 Delivery O2 Flow Rate FiO2 05/27/24 16:02 98.2 69 15 98 05/27/24 13:11 101/54 05/27/24 08:00 Room Air* 0 21 Total Intake and Output 05/26/24 05/26/24 05/27/24 15:00 23:00 07:00 Intake Total 800 ml 1200 ml Balance 800 ml 1200 ml medications Current Medications Medications Dose Ordered Sig/Sunday Route Start Time Stop Time Status Last Admin Dose Admin Lactated Ringer's 1,000 ml @ 125 mls/hr Q8H IV 05/24/24 19:00 05/27/24 03:00 125 MLS/HR Ondansetron HCl 4 mg Q8HPRN IV 05/24/24 22:00 05/27/24 05:57 4 MG Pantoprazole Sodium 40 mg DAILY IV 05/25/24 10:00 05/27/24 09:16 40 MG Morphine Sulfate 2 mg Q6HPRN IV 05/25/24 00:00 05/27/24 12:41 2 MG Ceftriaxone Sodium 50 ml @ 100 mls/hr DAILY@09 IV 05/25/24 09:00 05/27/24 09:16 100 MLS/HR Ursodiol 300 mg BID PO 05/26/24 22:00 05/27/24 09:16 300 MG objective General: NAD, AAOX3; slight icterus Chest: lung diaz clear to auscultation Heart: RRR, no murmur Abdomen: minimal right upper quadrant tenderness to palpation, +BS Ext no c/c/e laboratory and microbiology Laboratory Tests 05/27/24 06:35 Test 05/27/24 06:35 Range/Units Serum Glucose 87 74-106 mg/dL Problems(with codes): (1) Elevated alkaline phosphatase level (2) Elevated liver enzymes (3) Liver cirrhosis (4) Hyperbilirubinemia (5) Portal hypertension (6) Acute cholecystitis Prognosis PLAN Patient is being referred to [facility] for ERCP Subsequently patient will follow up with surgical consult for elective cholecystectomy Continue ursodiol 300 mg p.o. twice a day Patient will follow up with a business analyst ecommerce in [place] for further management of her possible autoimmune mixed with PBC picture Dietary Evaluation Review Comments: 1) Advance diet as medically feasible 2) Continue current plan of care Expected Outcomes/Goals: Pt will meet 75% estimated needs Fu 3-5 days Plan discussed with: Patient JOI CHAPA MD May 27, 2024 16:54
[2024-05-30 12:07] LABS: Anti-Centromere B Antibody >8.0 AI (0.0-0.9); Anti-Jo-1 Antibody <0.2 AI (0.0-0.9); Anti-dsDNA Antibody 1 IU/mL (0-9); Antichromatin Antibody 0.5 AI (0.0-0.9); Antiscleroderma-70 Antibody <0.2 AI (0.0-0.9); RNP Antibody <0.2 AI (0.0-0.9); Sjogren's Anti-SS-A Antibody 1.1 AI (0.0-0.9); Sjogren's Anti-SS-B Antibody <0.2 AI (0.0-0.9); Smith Antibody <0.2 AI (0.0-0.9)
== END 2024-05-27 17:00 | disposition short-term general hospital (02) ==
LOC: ER 11:30 → OVERFLOW 18:51 → UNDODEPER 05-25 03:58 → WEST WING 05-25 06:12
PROVIDERS: ADMIT Internal Medicine; ATTEND Emergency Medicine
DX: K80.00 Calculus of gallbladder with acute cholecystitis without obstruction (principal); D61.818 Other pancytopenia; K85.90 Acute pancreatitis without necrosis or infection, unspecified; K83.09 Other cholangitis; E80.6 Other disorders of bilirubin metabolism; R74.01 Elevation of levels of liver transaminase levels; K74.60 Unspecified cirrhosis of liver; K76.9 Liver disease, unspecified; K75.4 Autoimmune hepatitis; I86.8 Varicose veins of other specified sites; N30.00 Acute cystitis without hematuria; Z79.899 Other long term (current) drug therapy; Z90.49 Acquired absence of other specified parts of digestive tract; Z80.1 Family history of malignant neoplasm of trachea, bronchus and lung
CPT/HCPCS: 36415; 71045; 74177; 74181; 76705; 80053; 81001; 81025; 83516; 83690; 84443; 85025; 85610; 85730; 86225; 86235; 86704; 86706; 86708; 86803; 87340; 96361; 96365; 96375; 96376; G0378; J1885; J2405; J2470; J3490

== ENCOUNTER 2024-10-05 17:22 | Inpatient (IN) | payer OTHER ==
[~2024-10-05] VITALS: Ht 160 cm; Wt 82.9 kg
--- NOTE | 2024-10-05 17:45 | ED.PDOC ---
History of Present Illness HPI Comments This is a 44-year-old female with past medical history of autoimmune hepatitis, liver cirrhosis presented to the ED with the chief complaint of worsening jaundice and flank pain for last 1 week prior to this visit. The patient stated that 1 month ago she had cholecystectomy and for last week she noticed increased yellowish discoloration of the sclera, pale stool and flank pain which is colicky in nature, localized, 5/10, without any aggravating and relieving factors and associated with pain and burning sensation of the urine. She denies fever, chills, shortness of breath, nausea, vomiting, diffuse abdominal pain, recent traveling or any positive sick contact. She was admitted in [facility] 3 months ago and was adviced to follow up with applications engineer for further evaluation and management of autoimmune hepatitis and liver cirrhosis but patient was not able to follow up with any applications engineer because of the insurance issues. Chief Complaint: Flank Pain Time Seen by MD: 17:30 Primary Care Provider: [facility] Allergies: Coded Allergies: NO KNOWN ALLERGIES (Unverified , 02/18/22) Home Meds Active Scripts Lorazepam (ATIVAN TABLET) 0.5 Mg Tb, 1 TAB PO TID PRN, #20 TAB Prov:MICHELLE ZAMORA MD 02/22/22 Tramadol Hcl (Tramadol Hcl) 50 Mg Tab, 50 MG PO TID PRN, #20 TAB Prov:MICHELLE ZAMORA MD 02/22/22 Ursodiol (Ursodiol) 500 Mg Tab, 500 MG PO BID, #60 TAB Prov:MICHELLE ZAMORA MD 02/22/22 Methylprednisolone (Medrol Dosepak) 4 Mg Jonah, 4 MG PO UD, #21 TAB UAD Prov:MICHELLE ZAMORA MD 02/22/22 Azithromycin (Azithromycin) 500 Mg Tab, 1 TAB PO DAILY, #7 TAB Prov:MICHELLE ZAMORA MD 02/22/22 Reported Medications Ursodiol (Ursodiol) 300 Mg Cap, 300 MG PO BID for 30 Days, MG 02/21/22 Information Source: Patient Mode of Arrival: Ambulatory Severity: Moderate Timing: Weeks Duration: Since onset Prehospital treatment: None Past Medical History PAST MEDICAL HISTORY: Liver Past Medical History (Other): Autoimmune hepatitis and cirrhosis of liver Surgical History: Appendectomy, Cholecystectomy [employer]EMAN History: No Pertinent INSULATION FOREMAN History Family History Family History: Reviewed,noncontributory to illness, Family hx of Cancer Family History (Other): Aneurysm Social History Smoker: Non-Smoker Alcohol: Denies ETOH Use Drugs: Denies Drug Use Lives In: Home Constitutional: reports: fatigue, malaise; denies: chills, diaphoresis, fever, sweats, weakness, others EENTM: denies: blurred vision, double vision, ear bleeding, ear discharge, ear drainage, ear pain, ear ringing, eye pain, eye redness, hearing loss, mouth pain, mouth swelling, nasal discharge, nose bleeding, nose congestion, nose pain, photophobia, tearing, throat pain, throat swelling Respiratory: denies: cough, hemoptysis, orthopnea, SOB at rest, shortness of breath, SOB with excertion, stridor, wheezing, others Cardiovascular: denies: chest pain, dizzy spells, diaphoresis, Dyspnea on exertion, edema, irregular heart beat, left arm pain, lightheadedness, palpitations, PND, syncope, others Gastrointestinal: reports: constipated; denies: abdomen distended, abdominal pain, blood streaked bowels, diarrhea, dysphagia, difficulty swallowing, hematemesis, melena, nausea, poor appetite, poor fluid intake, rectal bleeding, rectal pain, vomiting, others Genitourinary: reports: burning, dysuria, flank pain; denies: abnormal vagina bleeding, dyspareunia, frequency, hematuria, incontinence, pain, , vagina discharge, urgency, others Neurological: denies: dizziness, fainting, headache, left sided numbness, left sided weakness, numbness, paresthesia, pre-existing deficit, right sided numbness, right sided weakness, seizure, speech problems, tingling, tremors, weakness, others Musculoskeletal: denies: back pain, gout, joint pain, joint swelling, muscle pain, muscle stiffness, neck pain, others Integumetry: denies: bruises, change in color, change in hair/nails, dryness, laceration, lesions, lumps, rash, wounds, others Allergic/Immunocompromised: denies: Difficulty Healing, Frequent Infections, Hives, Itching, others Hematologic/Lymphatic: denies: anemia, blood clots, easy bleeding, easy bruising, swollen glands, others Endocrine: denies: excessive hunger, excessive sweating, excessive thirst, excessive urination, flushing, intolerance to cold, intolerance to heat, unexplained weight gain, unexplained weight loss, others Psychiatric: denies: anxiety, bipolar disorder, depression, hopeless, panic disorder, schizophrenia, sleepless, suicidal, others Physical Exam General Appearance: Normal HEENT: Scleral Icterus (L), Scleral Icterus (R), Other (Yellowish discoloration of both sclera) Neck: Full Range of Motion, Non-Tender, Normal, Normal Inspection Respiratory: Chest Non-Tender, Lungs Clear, No Accessory Muscle Use, No Respiratory Distress, Normal Breath Sounds Cardiovascular: No Edema, No JVD, No Murmur, No Gallop, Normal Peripheral Pulses, Regular Rate/Rhythm Breast Exam: Deferred Gastrointestinal: Diffuse, Guarding, No Organomegaly, No Pulsatile Mass, Normal Bowel Sounds, Tenderness Genitalia: Deferred Pelvic: Deferred Rectal: Deferred Extremities: No calf tenderness, Normal capillary refill, Normal inspection, Normal range of motion, Non-tender, No pedal edema Neurologic: city rout[place] II-XII nml as Tested, No Motor Deficits, No Sensory Deficits Cerebellar Function: NOT DONE Reflexes: NOT DONE Skin: NOT DONE Peripheral Pulses: 2+ carotid (R), 2+ carotid (L), 2+ femoral (R), 2+ femoral (L), 2+ dorsalis pedis (R), 2+ dorsalis pedis (L), 2+ Radial (R), 2+ Radial (L), 2+ Brachial (R), 2+ Brachial (L) Lymphatic: NOT DONE Was a procedure done? Was a procedure done?: No Differential Dx Considerations may include: Autoimmune hepatitis, primary biliary cirrhosis, liver cirrhosis, pancreatitis, colitis, diverticulitis, UTI X-Ray, Labs, Meds, VS Vital Signs Date Time Temp Pulse Resp B/P (MAP) Pulse Ox O2 Delivery O2 Flow Rate FiO2 10/05/24 17:24 98.1 83 14 117/60 97 98.1 Lab Test 10/05/24 18:27 10/05/24 17:01 Range/Units White Blood Count 2.4 L 4.4-10.8 10^3/uL Red Blood Count 3.62 L 4.0-5.20 10^6/uL Hemoglobin 11.6 L 12.2-16.2 g/dL Hematocrit 34.6 L 36.0-46.0 % Mean Corpuscular Volume 95.5 80.0-100.0 fL Mean Corpuscular Hemoglobin 32.1 H 28.0-32.0 pg Mean Corpuscular Hemoglobin Concent 33.6 32.0-36.0 g/dL Red Cell Distribution Width 16.6 H 11.8-14.3 % Platelet Count 120 L 140-450 10^3/uL Mean Platelet Volume 10.4 6.9-10.8 fL Neutrophils (%) (Auto) 37.0-80.0 % Lymphocytes (%) (Auto) 10.0-50.0 % Monocytes (%) (Auto) 0.0-12.0 % Basophils (%) (Auto) 0.0-2.0 % Neutrophils # (Auto) 1.6-8.6 10 ^3/uL Lymphocytes # (Auto) 0.4-5.4 10 ^3/uL Monocytes # (Auto) 0-1.3 10 ^3/uL Differential Total Cells Counted Pending Neutrophils % (Manual) Pending Band Neutrophils % (Manual) Pending Lymphocytes % (Manual) Pending Monocytes % (Manual) Pending Eosinophils % (Manual) Pending Basophils % (Manual) Pending Metamyelocytes % (manual) Pending Myelocytes % (Manual) Pending Promyelocytes % (Manual) Pending Blast Cells % (Manual) Pending Reactive Lymphocytes Pending Platelet Estimate Pending Sodium Level 139 136-145 mmol/L Potassium Level 3.9 3.5-5.1 mmol/L Chloride Level 105 98-107 mmol/L Carbon Dioxide Level 26 20-31 mmol/L Anion Gap 8 5-15 Blood Urea Nitrogen 9 9-23 mg/dL Creatinine 0.54 L 0.550-1.02 mg/dL Glomerular Filtration Rate Calc 116 >90 mL/min BUN/Creatinine Ratio 16.7 10.0-20.0 Serum Glucose 100 74-106 mg/dL Calcium Level 8.4 L 8.7-10.4 mg/dL Total Bilirubin 9.0 H 0.2-1.0 mg/dL Aspartate Amino Transferase (AST) 209 H 13-40 U/L Alanine Aminotransferase (ALT) 151 H 7-40 U/L Alkaline Phosphatase 883 H 46-116 U/L Total Protein 6.9 5.7-8.2 g/dL Albumin 3.2 3.2-4.8 g/dL Lipase 167 H 12-53 U/L Urine Color Dark-yellow Yellow Urine Clarity Ex.turbid Clear Urine pH 5.5 5.0-9.0 Urine Specific [place] 1.021 1.001-1.035 Urine Protein Trace H Negative Urine Ketones Negative Negative Urine Blood 3+ H Negative /uL Urine Nitrite 2+ H Negative Urine Bilirubin 2+ H Negative Urine Urobilinogen Normal Negative mg/dL Urine Leukocyte Esterase Negative Negative /uL Urine RBC 854 0 - 4 /hpf Urine Microscopic WBC 14 H 0-5 /HPF Urine Squamous Epithelial Cells Few <5 /hpf Urine Bacteria Few H None Seen /hpf Urine Mucus Few None Seen Urine Glucose Normal Normal mg/dL X-Ray, Labs, Meds, VS Comment Indication: Right flank pain and jaundice Technique: CT axial images of the abdomen and pelvis are obtained without contrast. Coronal and sagittal reformats were obtained. Radiation Dose Information: CTDI volume is 11.7 mGy. Dose-length product is 613 mGy*cm Comparison: 05/25/2024 FINDINGS: There is limited interpretation of the abdomen and pelvis without administration of intravenous contrast. Lung bases demonstrate no pleural effusion. Adrenal glands unremarkable in shape. Spleen enlarged measuring 16.5 cm AP. Pancreas unremarkable in shape. Cholecystectomy. Liver unremarkable in shape. Perisplenic varices better characterized on previ ous examination. No hydronephrosis, nephrolithiasis. Stomach moderately distended. Small bowel loops normal in caliber. Colonic diverticula. Moderate volume stool within the colon. No secondary signs for appendicitis. Abdominal aortic atherosclerotic disease. Bladder contracted. Small amount of free pelvic fluid. No inguinal lymphadenopathy. No aggressive osseous process. IMPRESSION: Limited evaluation without contrast. Massive splenomegaly. Extensive perisplenic varices. Cholecystectomy. Small amount of free pelvic fluid. Other findings as described. Images Reviewed?: Images reviewed and evaluated by me Time of 1ST Reevaluation: 19:49 Reevaluation 1ST: Unchanged Patient Education/Counseling: Diagnosis, Treatment Family Education/Counseling: Diagnosis, Treatment Comments This is a 44 years old female with past medical history of autoimmune hepatitis, cirrhosis of liver presented to the ED with a chief complaint of worsening jaundice, flank pain and pain and burning sensation in the urine. Initial physical exam demonstrated diffuse abdominal tenderness CBC demonstrated leukopenia CMP showed elevated bilirubin, liver enzymes and lipase CT abdomen pelvis without IV contrast demonstrated massive splenomegaly with splenic varices U/A was consistent with UTI The patient will be admitted for management of UTI and further evaluation and management of autoimmune hepatitis and cirrhosis SEPSIS Sepsis Screen Date sepsis recognized/suspect: Oct 05, 2024 Time Sepsis recognized/suspect: 1723 Recent Procedure: No On Antibiotic Therapy: No Respiratory Rate >20: No Heart Rate >90: No Temp<36 C (96.8 F) or >38.3 C: No SBP <90 or MAP <65 mmHG: No New Acute Mental Status Change: No Is the patient on CPAP, BIPAP,: No Physician Orders Complete Blood Count (10/05/24 17:40) Ct Ab Pel Wo Con-No Oral Or Iv (10/05/24 17:40) Manual Differential (10/05/24 18:27) Urine Bacterial Culture (10/05/24 19:18) Ceftriaxone 1gm/50ml D5w (Rocephin) (10/05/24 19:30) Vital Signs Date Time Temp Pulse Resp B/P (MAP) Pulse Ox O2 Delivery O2 Flow Rate FiO2 10/05/24 17:24 98.1 83 14 117/60 97 98.1 Laboratory Tests Test 10/05/24 18:27 White Blood Count 2.4 10^3/uL (4.4-10.8) L Departure 1 Departure Time of Disposition: 19:51 Impression: Primary Impression: Autoimmune hepatitis Additional Impression: UTI (urinary tract infection) Disposition: 09 ADMITTED INPATIENT Condition: Guarded Critical Care Note Critical Care Time?: No Stability Stability form required: SAMUEL Arndt RESIDENT Oct 05, 2024 17:45
--- NOTE | 2024-10-05 18:17 | DVH ---
Indication: Right flank pain and jaundice Technique: CT axial images of the abdomen and pelvis are obtained without contrast. Coronal and sagit jason reformats were obtained. Radiation Dose Information: CTDI volume is 11.7 mGy. Dose-length product is 613 mGy*cm Comparison: 05/25/2024 FINDINGS: There is limited interpretation of the abdomen and pelvis without administration of intravenous contr ast. Lung bases demonstrate no pleural effusion. Adrenal glands unremarkable in shape. Spleen enlarged measuring 16.5 cm AP. Pancreas unremarkable in shape. Cholecystectomy. Liver unremarkable in shape. Perisplenic varices better characterized on previous examination. No hydronephrosis, nephrolithiasis. Stomach moderately distended. Small bowel loops normal in caliber. Colonic diverticula. Moderate volume stool within the colon. No secondary signs for appendicitis. Abdominal aortic atherosclerotic disease. Bladder contracted. Small amount of free pelvic fluid. No inguinal lymphadenopathy. No aggressive osseous process. IMPRESSION: Limited evaluation without contrast. Massive splenomegaly. Extensive perisplenic varices. Cholecystectomy. Small amount of free pelvic fluid. Other findings as described.
[2024-10-05 18:46] LABS: Urine Protein, UAD TRACE (Negative)
[2024-10-05 19:10] LABS: Hematocrit 34.6 % (36.0-46.0); Hemoglobin 11.6 g/dL (12.2-16.2); Mean Corpuscular Hemoglobin 32.1 pg (28.0-32.0); Mean Corpuscular Volume 95.5 fL (80.0-100.0)
[2024-10-05 19:25] LABS: Albumin 3.2 g/dL (3.2-4.8); Anion Gap 8 (5-15); BUN/Creatinine Ratio 16.7 (10.0-20.0); Carbon Dioxide 26 mmol/L (20-31); Chloride 105 mmol/L (98-107); Glucose 100 mg/dL (74-106); Potassium 3.9 mmol/L (3.5-5.1); Sodium 139 mmol/L (136-145); Total Protein 6.9 g/dL (5.7-8.2)
[2024-10-05 19:27] LABS: Alanine Aminotransferase 151 U/L (7-40); Alkaline Phosphatase 883 U/L (46-116); Bilirubin, Total 9.0 mg/dL (0.2-1.0); Blood Urea Nitrogen 9 mg/dL (9-23); Calcium 8.4 mg/dL (8.7-10.4); Lipase 167 U/L (12-53)
[2024-10-05 20:33] LABS: Anisocytosis Slight; Total Cells Counted 100.0 (100)
[2024-10-05] MEDS: cefTRIAXone 1GM/50ML D5W 50 ML IV ONE (21:12)
[2024-10-05] MEDS: ACETAMINOPHEN 325 MG TAB PO PRN (22:00)
[2024-10-05] MEDS: HYDROcodone-ACET 5/325MG TAB PO PRN (22:00)
[2024-10-05 22:04] LABS: Amphetamine Screen, Urine Neg (NEGATIVE); Cocaine Screen, Urine Neg (NEGATIVE)
[2024-10-05 22:08] LABS: Barbiturate Scree,Urine Neg (NEGATIVE); Benzodiazephine Screen, Urine Neg (NEGATIVE); Cannabinoid Screen, Urine Neg (NEGATIVE); Opiate Scree,Urine Neg (NEGATIVE); Phencyclidine Screen, Urine Neg (NEGATIVE)
[2024-10-05] MEDS: KETOROLAC TROMETH 30 MG/ML 1ML VIAL IV ONE (22:14)
[2024-10-05] MEDS: ONDANSETRON HCL 4 MG/2 ML VIAL IV PRN (22:17)
[2024-10-05] MEDS: PIPERACILLIN-TAZOB 3.375GM 100 ML IV SCH (22:18)
[2024-10-05 22:25] LABS: Cholesterol 471 mg/dL (< 200); HDL Cholesterol 12 mg/dL (40-59); Triglycerides 177 mg/dL (< 150)
--- NOTE | 2024-10-05 23:17 | DVHHPRES ---
History of Present Illness Resident Creating Document: SIRI BARNES RESIDENT History of Present Illness This is a 44-year-old female with past medical history of autoimmune hepatitis, liver cirrhosis who presented to the ED with chief complaint of worsening jaundice and right flank pain for the last one week. Patient reports that she had a cholecystectomy performed months ago but patient has been experiencing jaundice that comes and goes. Patient reports that in the last three days she started experiencing worsening of the jaundice associated with progressive fatigue, generalized weakness, nausea and vomiting. The patient also reports a sharp pain that comes and goes and is located in the right flank. Patient rates the pain as a 7/10 on the pain scale and stated that the pain is localized in the right flank without specific pattern of radiation. Patient states that lying down in the right side worsens the pain and states that she is able to tolerate oral food without problem but has very poor appetite recently. On admission, labs showed decreased WBC to 2.4, hemoglobin is 11.6, total bilirubin nine, AST 209, ALT 151, alkaline phosphatase 883 and lipase 167. Previous mentioned it labs showing cholestatic pattern. CT of the abdomen was performed showing massive splenomegaly with the extensive perisplenic varices and absent gallbladder due to cholecystectomy. There is also small amount of free pelvic fluid. We will ordered an MRCP to completely rule out choledocholithiasis which could possibly explain rise in all previous mentioned it labs if the stone is located below the junction of the common bile duct and pancreatic duct. We will place the patient on clear liquids, IV fluids, IV Zosyn, pain medications. We will admit the patient for further assessment and management. Past medical history: Autoimmune hepatitis, liver cirrhosis Surgical history: Cholecystectomy and appendectomy Social history: Denies alcohol intake, drug consumption or smoking Past Surgical History: Appendectomy, Cholecystectomy Family History: None Smoke: No ALCOHOL: none Drugs: None Lives: with Family Domestic Violence: Neg Review of Systems Constitutional: No: Fever, Chills, Sweats, Weakness, Malaise, Other Eyes: No: Pain, Vision change, Conjunctivae inflammation, Eyelid inflammation, Other, Redness ENT: No: Ear pain, Ear discharge, Nose pain, Nose discharge, Nose congestion, Mouth pain, Mouth swelling, Throat pain, Throat swelling, Other Respiratory: No: Cough, Dry, Shortness of breath, SOB with excertion, Wheezing, Hemoptysis, Pleuritic Pain, Sputum, Wheezing, Other Cardiovascular: No: Chest Pain, Palpitations, Orthopnea, Paroxysmal Noc. Dyspnea, Edema, Lt Headedness, Other Gastrointestinal: Nausea, Vomiting, Abdominal Pain, Other (Specifically right flank pain); No: Diarrhea, Constipation, Melena, Hematochezia Genitourinary: Dysuria, Frequency; No Incontinence, No Hematuria, No Retention; Other (Burning sensation while peeing) Musculoskeletal: No: other, neck pain, shoulder pain, arm pain, back pain, hand pain, leg pain, foot pain Skin: Jaundice; No: Rash, Lesions, Bruising, Other Neurological: No: Weakness, Numbness, Incoordination, Change in speech, Confusion, Seizures, Other Allergies: Coded Allergies: NO KNOWN ALLERGIES (Unverified , 02/18/22) Medications Current Medications Medications Dose Ordered Sig/Sunday Route Start Time Stop Time Status Last Admin Dose Admin Acetaminophen 650 mg Q6HP PRN PO 10/05/24 21:45 10/05/24 22:00 650 MG Acetaminophen/ Hydrocodone Bitart 1 tab Q4HP PRN PO 10/05/24 21:45 10/05/24 22:00 1 TAB Ondansetron HCl 4 mg Q4HP PRN IV 10/05/24 21:45 10/05/24 22:17 4 MG Piperacillin Sod/ Tazobactam Sod 100 ml @ 100 mls/hr Q6H IV 10/05/24 21:48 10/05/24 22:18 100 MLS/HR Exam Vital Signs Vital Signs Date Time Temp Pulse Resp B/P (MAP) Pulse Ox O2 Delivery O2 Flow Rate FiO2 10/05/24 21:10 77 19 99 Room Air 10/05/24 21:10 98.4 125/75 (92) 98.4 General Appearance: Alert, Oriented X3, Cooperative, mild distress HEENT: PERRLA, EOMI, Other (Severe jaundice especially marked on scleras) Respiratory: Clear to auscultation, Normal air movement Cardiovascular: Regular rate, Normal S1, Normal S2, No murmurs Abdominal: Normal bowel sounds, Soft, Other (There is splenomegaly and right flank pain) Extremities: No clubbing, No cyanosis, No edema, Normal pulses, No tenderness/swelling Skin: No rashes, No breakdown, No significant lesion Neuro: Normal gait, Normal speech, Strength at 5/5 X4 ext, Normal tone, Sensation intact, Cranial nerves 3-12 NL, Reflexes 2+ Psych/Mental Status: Mental status NL Labs/Xrays Labs Test 10/05/24 18:27 10/05/24 17:01 Range/Units White Blood Count 2.4 L 4.4-10.8 10^3/uL Red Blood Count 3.62 L 4.0-5.20 10^6/uL Hemoglobin 11.6 L 12.2-16.2 g/dL Hematocrit 34.6 L 36.0-46.0 % Mean Corpuscular Volume 95.5 80.0-100.0 fL Mean Corpuscular Hemoglobin 32.1 H 28.0-32.0 pg Mean Corpuscular Hemoglobin Concent 33.6 32.0-36.0 g/dL Red Cell Distribution Width 16.6 H 11.8-14.3 % Platelet Count 120 L 140-450 10^3/uL Mean Platelet Volume 10.4 6.9-10.8 fL Neutrophils (%) (Auto) 37.0-80.0 % Lymphocytes (%) (Auto) 10.0-50.0 % Monocytes (%) (Auto) 0.0-12.0 % Basophils (%) (Auto) 0.0-2.0 % Neutrophils # (Auto) 1.6-8.6 10 ^3/uL Lymphocytes # (Auto) 0.4-5.4 10 ^3/uL Monocytes # (Auto) 0-1.3 10 ^3/uL Differential Total Cells Counted 100.0 100 Neutrophils % (Manual) 62 37.0-80.0 Band Neutrophils % (Manual) 0 Lymphocytes % (Manual) 32 10.0-50.0 Monocytes % (Manual) 6 0-12 Eosinophils % (Manual) 0 0-7 Basophils % (Manual) 0 0.0-2.0 Metamyelocytes % (manual) 0 Myelocytes % (Manual) 0 Promyelocytes % (Manual) 0 Blast Cells % (Manual) 0 Reactive Lymphocytes 0 Platelet Estimate Decreased Anisocytosis (manual) Slight Sodium Level 139 136-145 mmol/L Potassium Level 3.9 3.5-5.1 mmol/L Chloride Level 105 98-107 mmol/L Carbon Dioxide Level 26 20-31 mmol/L Anion Gap 8 5-15 Blood Urea Nitrogen 9 9-23 mg/dL Creatinine 0.54 L 0.550-1.02 mg/dL Glomerular Filtration Rate Calc 116 >90 mL/min BUN/Creatinine Ratio 16.7 10.0-20.0 Serum Glucose 100 74-106 mg/dL Hemoglobin A1c < 3.8 <5.7 % A1C Calcium Level 8.4 L 8.7-10.4 mg/dL Total Bilirubin 9.0 H 0.2-1.0 mg/dL Aspartate Amino Transferase (AST) 209 H 13-40 U/L Alanine Aminotransferase (ALT) 151 H 7-40 U/L Alkaline Phosphatase 883 H 46-116 U/L Total Protein 6.9 5.7-8.2 g/dL Albumin 3.2 3.2-4.8 g/dL Triglycerides Level 177 H < 150 mg/dL Cholesterol Level 471 H < 200 mg/dL LDL Cholesterol 439 H < 100 mg/dL HDL Cholesterol 12 L 40-59 mg/dL Lipase 167 H 12-53 U/L Urine Color Dark-yellow Yellow Urine Clarity Ex.turbid Clear Urine pH 5.5 5.0-9.0 Urine Specific [place] 1.021 1.001-1.035 Urine Protein Trace H Negative Urine Ketones Negative Negative Urine Blood 3+ H Negative /uL Urine Nitrite 2+ H Negative Urine Bilirubin 2+ H Negative Urine Urobilinogen Normal Negative mg/dL Urine Leukocyte Esterase Negative Negative /uL Urine RBC 854 0 - 4 /hpf Urine Microscopic WBC 14 H 0-5 /HPF Urine Squamous Epithelial Cells Few <5 /hpf Urine Bacteria Few H None Seen /hpf Urine Mucus Few None Seen Urine Glucose Normal Normal mg/dL Urine Opiates Screen Neg NEGATIVE Urine Fentanyl Screen Neg NEGATIVE Urine Barbiturates Screen Neg NEGATIVE Urine Phencyclidine Screen Neg NEGATIVE Urine Amphetamines Screen Neg NEGATIVE Urine Benzodiazepines Screen Neg NEGATIVE Urine Cocaine Screen Neg NEGATIVE Urine Cannabinoids Screen Neg NEGATIVE SEPSIS Sepsis Screen Date sepsis recognized/suspect: Oct 05, 2024 Time Sepsis recognized/suspect: 1724 Recent Procedure: No On Antibiotic Therapy: No Respiratory Rate >20: No Heart Rate >90: No Temp<36 C (96.8 F) or >38.3 C: No SBP <90 or MAP <65 mmHG: No New Acute Mental Status Change: No Is the patient on CPAP, BIPAP,: No Physician Orders Ct Ab Pel Wo Con-No Oral Or Iv (10/05/24 17:40) Urine Bacterial Culture (10/05/24 19:18) Admit (10/05/24 21:31) Code Status (10/05/24:) Vital Signs .PER UNIT PROTOCOL (10/05/24 21:31) Review Orders With Adm. (10/05/24 21:31) Encourage Activity As Tolerate (10/05/24 21:31) Acetaminophen Tablet (Tylenol Tablet) (10/05/24 21:45) Notify Md Of Changes From Base (10/05/24 21:31) Advance Directive (10/05/24:31) Complete Blood Count (10/06/24 04:00) Patient Condition (10/05/24:) Allergies (10/05/24:) Hydrocodone-Acet 5/325mg Tab ([place] 5/32 (10/05/24 21:45) Ondansetron Hcl (Zofran) (10/05/24 21:45) Mrcp Mri (10/05/24 21:43) * Gi Dvh Seat Cover Installer (10/05/24 21:44) Clear Liq Diet (10/06/24 Breakfast) Comprehensive Metabolic Panel (10/06/24 04:00) Sodium Chloride 0.9% (10/05/24 23:40) Piperacillin-Tazob 3.375gm (Zosyn 3.375g (10/05/24 21:48) Lactic Acid W/ Reflex Order (10/05/24 22:58) Vital Signs Date Time Temp Pulse Resp B/P (MAP) Pulse Ox O2 Delivery O2 Flow Rate FiO2 10/05/24 21:10 77 19 99 Room Air 10/05/24 21:10 98.4 77 19 125/75 (92) 99 98.4 10/05/24 17:24 98.1 83 14 117/60 97 98.1 Laboratory Tests Test 10/05/24 18:27 White Blood Count 2.4 10^3/uL (4.4-10.8) L Medications Medications Dose Ordered Sig/Sunday Route Start Time Stop Time Status Last Admin Dose Admin Acetaminophen 650 mg Q6HP PRN PO 10/05/24 21:45 10/05/24 22:00 650 MG Acetaminophen/ Hydrocodone Bitart 1 tab Q4HP PRN PO 10/05/24 21:45 10/05/24 22:00 1 TAB Ceftriaxone Sodium 50 ml @ 100 mls/hr ONCE ONCE IV 10/05/24 19:30 10/05/24 19:59 DC 10/05/24 21:12 100 MLS/HR Ketorolac Tromethamine 15 mg ONCE ONCE IV 10/05/24 21:45 10/05/24 21:47 DC 10/05/24 22:14 15 MG Ondansetron HCl 4 mg Q4HP PRN IV 10/05/24 21:45 10/05/24 22:17 4 MG Piperacillin Sod/ Tazobactam Sod 100 ml @ 100 mls/hr Q6H IV 10/05/24 21:48 10/05/24 22:18 100 MLS/HR Assessment/Plan Assessment/Plan Assessment/plan Acute right flank pain, R/O choledocholithiasis R/O acute cholangitis Possible choledocholithiasis Acute pancreatitis Acute UTI Generalized jaundice Hyperbilirubinemia Acute transaminitis possibly due to autoimmune hepatitis, need to rule out choledocholithiasis History of autoimmune hepatitis Plan -patient has generalized jaundice very marked on scleras -there is cholestatic pattern with elevated total bilirubin, liver enzymes, alkaline phosphatase and lipase. Need to rule out choledocholithiasis with a stone below the junction of the common bile duct with the pancreatic duct -ordered MRCP to rule out choledocholithiasis -start IV Zosyn -gave 1 L bolus of lactated ringer, keep maintenance fluids -clear liquid diet -ondansetron PRN for nausea/vomiting -pain medication -UA suggestive of UTI. Started IV antibiotics -consulted GI for autoimmune hepatitis with severe worsening jaundice and possible choledocholithiasis Goals care discussed with the patient at bedside, full code Plan discussed with Dr. Earl Plan discussed with: Patient My Orders Orders - SIRI BARNES Procedure Category Date Status Time Admit ADMIT 10/05/24 Transmitted 21:31 Code Status CODE 10/05/24 Transmitted 21:31 Vital Signs HARISH 10/05/24 In Process 21:31 Review Orders With HARISH 10/05/24 In Process Adm. 21:31 Encourage Activity As HARISH 10/05/24 In Process Tolerate 21:31 Acetaminophen Tablet PHA 10/05/24 In Process (Tylenol Tablet) 21:45 Notify Of Changes HARISH 10/05/24 In Process From Base 21:31 Advance Directive HARISH 10/05/24 In Process 21:31 Complete Blood Count LAB 10/06/24 Verified 04:00 Patient Condition ORDERS 10/05/24 Transmitted 21:31 Allergies HARISH 10/05/24 In Process 21:31 Hydrocodone-Acet PHA 10/05/24 In Process 5/325mg Tab ([place] 21:45 Ondansetron Hcl PHA 10/05/24 In Process (Zofran) 21:45 Mrcp Mri MRI 10/05/24 Logged 21:43 * Gi Dvh Seat Cover Installer CONS 10/05/24 Transmitted 21:44 Clear Liq Diet DIET 10/06/24 Transmitted Breakfast Comprehensive LAB 10/06/24 Verified Metabolic Panel 04:00 Sodium Chloride 0.9% PHA 10/05/24 In Process 23:40 Piperacillin-Tazob PHA 10/05/24 In Process 3.375gm (Zosyn 3.375g 21:48 Lactic Acid W/ Reflex LAB 10/05/24 Verified Order 22:58 Date of Service: Oct 05, 2024 Billing Provider: CICI EARL MD Common Visit Codes: [id number] INP/OBS CARE (HIGH) Secondary Visit Codes: 91121-[id number] CARE PLAN 30 MINUTES SIRI BARNES RESIDENT Oct 05, 2024 23:17
[2024-10-06] MEDS: LACTATED RINGER'S 1,000 ML IV ONE (02:08)
[2024-10-06 05:07] LABS: Hematocrit 32.8 % (36.0-46.0); Hemoglobin 11.2 g/dL (12.2-16.2); Mean Corpuscular Hemoglobin 32.7 pg (28.0-32.0); Mean Corpuscular Volume 95.6 fL (80.0-100.0)
[2024-10-06 05:14] LABS: Anion Gap 7 (5-15); BUN/Creatinine Ratio 23.2 (10.0-20.0); Blood Urea Nitrogen 13 mg/dL (9-23); Carbon Dioxide 26 mmol/L (20-31); Chloride 106 mmol/L (98-107); Glucose 105 mg/dL (74-106); Potassium 3.8 mmol/L (3.5-5.1); Sodium 139 mmol/L (136-145); Total Protein 6.7 g/dL (5.7-8.2)
[2024-10-06 05:16] LABS: Alanine Aminotransferase 139 U/L (7-40); Albumin 3.1 g/dL (3.2-4.8); Alkaline Phosphatase 849 U/L (46-116); Bilirubin, Total 8.3 mg/dL (0.2-1.0); Calcium 8.0 mg/dL (8.7-10.4)
[2024-10-06] MEDS: SODIUM CHLORIDE 0.9% 1,000 ML IV ONE ×2 (05:26→17:00)
[2024-10-06 05:43] VITALS: PULSE 68; RESP 14; O2SAT 99
[2024-10-06 06:16] LABS: Total Cells Counted 100.0 (100)
[2024-10-06] MEDS: ACETAMINOPHEN 325 MG TAB PO SCH (11:00)
[2024-10-06] MEDS: ACETAMINOPHEN 325 MG TAB PO ONE (13:00)
[2024-10-06] MEDS: LORazepam 2MG/ML-1ML VIAL IV ONE ×2 (13:15→13:20)
[2024-10-06 13:30] VITALS: PULSE 61; RESP 12; O2SAT 96
[2024-10-06] MEDS: PANTOPRAZOLE 40 MG/10 ML VIAL INJ IV ONE (14:09)
[2024-10-06] MEDS: KETOROLAC TROMETH 30 MG/ML 1ML VIAL IV ONE (14:09)
--- NOTE | 2024-10-06 14:17 | DVH ---
MRI abdomen/ MRCP without intravenous contrast HISTORY: CHOLEDOCHOLITHIASIS. WORSENING JAUNDICE COMPARISON: CT CT AB PEL WO CON-NO ORAL OR IV on DOS: 10/05/24, MRI MRCP MRI on DOS: 05/25/24, CT CT AB PEL WITH IV CON ONLY on DOS: 05/25/24, US GALLBLADDER on DOS: 05/24/24, CT ABD PELVIS WO CONTRAST on DO S: 02/18/22 PROCEDURE: Multiplanar multisequence MRI images were obtained of the abdomen without intravenous cont rast Additional MIPS were obtained of the biliary system. FINDINGS: Bile ducts: -Intrahepatic ducts: Non-dilated. -Extrahepatic ducts: Non-dilated. -Common bile duct: Non-dilated. -Filling defects: No filling defects -Stricture: None. Gallbladder: Post cholecystectomy. Pancreas: Pancreatic duct: No ductal dilatation. Lesions: None. Liver: Signal intensity: Homogenous. Contour: Smooth. Size: Normal. Lesions: No focal liver lesion. ADDITIONAL FINDINGS: Lung base: Normal. Pancreas: Normal. Spleen:Splenomegaly. Bowel: Normal. Adrenal glands:Normal. Kidneys and ureters:Normal. Lymph nodes:Normal. Peritoneum:Normal. Vessels: Normal. Abdominal wall: Normal. Bone: No aggressive bone lesions IMPRESSION: No findings of choledocholithiasis. Splenomegaly.
--- NOTE | 2024-10-06 15:14 | DVHPNRES ---
Progress Note Date Seen: Oct 06, 2024 Resident Creating Document: MANASA LIVINGSTON RESDIENT Medical Necessity Reason Pt with a Central, PICC or Fol: No Subjective Review of Systems This is a 44-year-old female with past medical history of autoimmune hepatitis, liver cirrhosis who presented to the ED with chief complaint of worsening jaundice and right flank pain for the last one week. Patient reports that she had a cholecystectomy performed months ago but patient has been experiencing jaundice that comes and goes. Patient reports that in the last three days she started experiencing worsening of the jaundice associated with progressive fatigue, generalized weakness, nausea and vomiting. The patient also reports a sharp pain that comes and goes and is located in the right flank. Patient rates the pain as a 7/10 on the pain scale and stated that the pain is localized in the right flank without specific pattern of radiation. Patient states that lying down in the right side worsens the pain and states that she is able to tolerate oral food without problem but has very poor appetite recently. On admission, labs showed decreased WBC to 2.4, hemoglobin is 11.6, total bilirubin nine, AST 209, ALT 151, alkaline phosphatase 883 and lipase 167. Previous mentioned it labs showing cholestatic pattern. CT of the abdomen was performed showing massive splenomegaly with the extensive perisplenic varices and absent gallbladder due to cholecystectomy. There is also small amount of free pelvic fluid. We will ordered an MRCP to completely rule out choledocholithiasis which could possibly explain rise in all previous mentioned it labs if the stone is located below the junction of the common bile duct and pancreatic duct. We will place the patient on clear liquids, IV fluids, IV Zosyn, pain medications. We will admit the patient for further assessment and management. Past medical history: Autoimmune hepatitis, liver cirrhosis Surgical history: Cholecystectomy and appendectomy Social history: Denies alcohol intake, drug consumption or smoking Past Surgical History: Appendectomy, Cholecystectomy Patient seen and examined at the bedside. Patient is complaining of intractable abdominal pain, nausea and vomiting. Patient is not able to take food. Objective vital signs Vital Sign Date Time Temp Pulse Resp B/P (MAP) Pulse Ox O2 Delivery O2 Flow Rate FiO2 10/06/24 11:30 97.8 65 14 95/63 (74) 98 97.8 10/06/24 08:00 Room Air* 0 21 Total Intake and Output 10/05/24 10/05/2410/06/25 15:00 23:00 07:00 Intake Total 50 ml 100 ml Balance 50 ml 100 ml medications Current Medications Medications Dose Ordered Sig/Sunday Route Start Time Stop Time Status Last Admin Dose Admin Ondansetron HCl 4 mg Q4HP PRN IV 10/05/24 21:45 10/06/24 10:42 4 MG Piperacillin Sod/ Tazobactam Sod 100 ml @ 100 mls/hr Q6H IV 10/05/24 21:48 10/06/24 10:15 100 MLS/HR Acetaminophen 650 mg Q6HR PO 10/06/24 11:00 Ketorolac Tromethamine 15 mg Q6HPRN PRN IV 10/06/24 11:00 10/11/24 10:59 Pantoprazole Sodium 40 mg DAILY IV 10/07/24 10:00 Examination General Appearance: Alert, Oriented X3, Cooperative, No acute distress HEENT: Atraumatic, PERRLA, EOMI, Mucous membrane moist/pink Respiratory: Clear to auscultation, Normal air movement Cardiovascular: Regular rate, Normal S1, Normal S2, No murmurs, no chest wall tenderness Abdominal: Right upper quadrant and right flank tenderness Extremities: No clubbing, No cyanosis, No edema, Normal pulses, No tenderness/swelling Skin: No rashes, No breakdown, No significant lesion Neuro: Normal gait, Normal speech, Strength at 5/5 X4 ext, Normal tone, Sensation intact, Cranial nerves 3-12 NL, Reflexes 2+ Psych/Mental Status: Mental status NL, Mood NL laboratory and microbiology Laboratory Tests 10/06/24 04:20 Test 10/06/24 04:20 Range/Units Serum Glucose 105 74-106 mg/dL Microbiology Date/Time Source Procedure Growth Status 10/05/24 17:01 Voided Urine Urine Culture - Preliminary Resulted Labs and/or images reviewed: Labs reviewed by me, Image(s) reviewed by me (RN) Problem List/Assessment/Plan Problem List/Assessment/Plan Right upper quadrant pain, likely due to choledocholithiasis Possible pancreatitis Ruled out cholangitis Complicated UTI Jaundice Decompensated liver failure, likely due to autoimmune hepatitis Autoimmune hepatitis Hyperbilirubinemia, likely due to autoimmune hepatitis Cholelithiasis Dyslipidemia * Lipase is raised at 167 * LFT shows cholelithiasis * UA shows extremely turbid urine, nitrites 2+, bilirubin 2+, RBC 854, WBC 14, with few bacteria Plan/recommendation * Empiric antibiotic Rocephin and Flagyl * Check MRCP * Pain management DIET: Clear liquid diet DVT PROPHYLAXIS: Lovenox GI PROPHYLAXIS:: Protonix CODE STATUS: Goal of care discussed for more than 18 minutes, full code DISPOSITION: Med/surge Patient's status and plan discussed with the patient. Case discussed with Dr. Magaña. Plan discussed with: Patient, Other My Orders My Orders Orders - MANASA LIVINGSTON Procedure Category Date Status Time Acetaminophen Tablet PHA 10/06/24 In Process (Tylenol Tablet) 11:00 Ketorolac Injection PHA 10/06/24 In Process (Toradol Injection) 11:00 Pantoprazole PHA 10/07/24 In Process (Protonix) 10:00 Date of Service: Oct 06, 2024 Billing Provider: RASHID MAGAÑA MD Common Visit Codes: [id number] INP/OBS CARE(HIGH) MANASA LIVINGSTON Oct 06, 2024 15:14 RASHID MAGAÑA MD Oct 12, 2024 22:00
--- NOTE | 2024-10-06 16:13 | DVHINCON2 ---
Date of service: Oct 06, [address] Abdi Reason for Consultation Abdominal pain with a history of cirrhosis autoimmune hepatitis and with worsening jaundice History of Present Illness Female has history of autoimmune hepatitis apparently with the liver cirrhosis presenting to the emergency room with complaints of jaundice which was worse in the last one week. Patient also has got some nonspecific right abdominal pain especially in the right flank. Patient has history of autoimmune hepatitis diagnosed about three years ago jaundice after delivery She was seen at [facility] liver biopsy there and was told to have autoimmune hepatitis treated with steroids apparently for a few months but which got worse with increasing swelling etc. and hence the steroids were stopped currently he is on Ursodiol Has recurrent jaundice on and off coming on and off. She last two months ago she was admitted here with worsening jaundice and found to have gallbladder stones an MRI MRCP done and apparently showed no stones she was sent to [facility] apparently for surgery and was cholecystectomy was done. Apparently never had an ERCP any time Her bilirubin is nine with AST of 209 ALT of 151 and alkaline phosphatase of 883 lipase is also slightly increased to 167 CT scan of the abdomen showed massive splenomegaly with extensive extra perisplenic varices. There was also small amount of free fluid MRCP failed to reveal any choledocholithiasis but MRI MRCP was done without any contrast Past Medical History History of autoimmune hepatitis liver cirrhosis Past Surgical History Cholecystectomy appendectomy Family History: FHx: lung cancer G8 MOTHER Family History Noncontributory Social History Denies smoking or drinking or drug abuse Allergies: Coded Allergies: NO KNOWN ALLERGIES (Unverified , 02/18/22) Home Meds Active Scripts Lorazepam (ATIVAN TABLET) 0.5 Mg Tb, 1 TAB PO TID PRN, #20 TAB Prov:MICHELLE ZAMORA MD 02/22/22 Tramadol Hcl (Tramadol Hcl) 50 Mg Tab, 50 MG PO TID PRN, #20 TAB Prov:MICHELLE ZAMORA MD 02/22/22 Ursodiol (Ursodiol) 500 Mg Tab, 500 MG PO BID, #60 TAB Prov:MICHELLE ZAMORA MD 02/22/22 Methylprednisolone (Medrol Dosepak) 4 Mg Jonah, 4 MG PO UD, #21 TAB UAD Prov:MICHELLE ZAMORA MD 02/22/22 Azithromycin (Azithromycin) 500 Mg Tab, 1 TAB PO DAILY, #7 TAB Prov:MICHELLE ZAMORA MD 02/22/22 Reported Medications Ursodiol (Ursodiol) 300 Mg Cap, 300 MG PO BID for 30 Days, MG 02/21/22 Current Medications Current Medications Medications (Trade) Dose Ordered Sig/Sunday Route PRN Reason Start Time Stop Time Status Last Admin Acetaminophen (Tylenol Tablet) 650 mg Q6HP PRN PO PAIN SCALE 1-3 OR TEMP>100.4 10/05/24 21:45 10/06/24 10:59 DC 10/05/24 22:00 Acetaminophen/ Hydrocodone Bitart (Bealeton 5/325MG Tab) 1 tab Q4HP PRN PO MODERATE PAIN (4-6 PAIN SCALE) 10/05/24 21:45 10/06/24 13:12 DC 10/06/24 10:42 Ondansetron HCl (Zofran) 4 mg Q4HP PRN IV NAUSEA / VOMITING 10/05/24 21:45 10/06/24 10:42 Piperacillin Sod/ Tazobactam Sod 100 ml @ 100 mls/hr Q6H IV 10/05/24 21:48 10/06/24 14:48 DC 10/06/24 10:15 Acetaminophen (Tylenol Tablet) 650 mg Q6HR PO 10/06/24 11:00 Ketorolac Tromethamine (Toradol Injection) 15 mg Q6HPRN PRN IV MODERATE PAIN (4-6 PAIN SCALE) 10/06/24 11:00 10/11/24 10:59 Pantoprazole Sodium (Protonix) 40 mg DAILY IV 10/07/24 10:00 Metronidazole 100 ml @ 100 mls/hr Q8HR IV 10/06/24 22:00 Ceftriaxone Sodium 50 ml @ 100 mls/hr DAILY@09 IV 10/07/24 09:00 Review of Systems Noncontributory Vital Signs Vital Signs Date Time Temp Pulse Resp B/P (MAP) Pulse Ox O2 Delivery O2 Flow Rate FiO2 10/06/24 15:00 61 12 90/51 (64) 96 10/06/24 13:30 Room Air* 0 21 10/06/24 11:30 97.8 97.8 Physical Exam Moderately built and nourished female incidentally icteric HEENT examination revealed no pallor the intensive scleral icterus Neck was supple no lymphadenopathy or thyromegaly Lungs clear Cardiovascular unremarkable Abdomen mildly distended with possible liver enlargement some fullness could not appreciate any liver margin clearly no other masses felt left upper quadrant fullness possibly from splenomegaly Extremities no edema Neurological grossly intact Labs/Diagnostic Data Labs Test 10/06/24 04:20 10/05/24 23:16 10/05/24 18:27 10/05/24 17:01 Range/Units White Blood Count 2.8 L 4.4-10.8 10^3/uL Red Blood Count 3.43 L 4.0-5.20 10^6/uL Hemoglobin 11.2 L 12.2-16.2 g/dL Hematocrit 32.8 L 36.0-46.0 % Mean Corpuscular Volume 95.6 80.0-100.0 fL Mean Corpuscular Hemoglobin 32.7 H 28.0-32.0 pg Mean Corpuscular Hemoglobin Concent 34.2 32.0-36.0 g/dL Red Cell Distribution Width 16.7 H 11.8-14.3 % Platelet Count 112 L 140-450 10^3/uL Mean Platelet Volume 10.3 6.9-10.8 fL Neutrophils (%) (Auto) 37.0-80.0 % Lymphocytes (%) (Auto) 10.0-50.0 % Monocytes (%) (Auto) 0.0-12.0 % Basophils (%) (Auto) 0.0-2.0 % Neutrophils # (Auto) 1.6-8.6 10 ^3/uL Lymphocytes # (Auto) 0.4-5.4 10 ^3/uL Monocytes # (Auto) 0-1.3 10 ^3/uL Differential Total Cells Counted 100.0 100 Neutrophils % (Manual) 47 37.0-80.0 Band Neutrophils % (Manual) 2 Lymphocytes % (Manual) 41 10.0-50.0 Monocytes % (Manual) 4 0-12 Eosinophils % (Manual) 6 0-7 Basophils % (Manual) 0 0.0-2.0 Metamyelocytes % (manual) 0 Myelocytes % (Manual) 0 Promyelocytes % (Manual) 0 Blast Cells % (Manual) 0 Reactive Lymphocytes 0 Platelet Estimate Decreased Sodium Level 139 136-145 mmol/L Potassium Level 3.8 3.5-5.1 mmol/L Chloride Level 106 98-107 mmol/L Carbon Dioxide Level 26 20-31 mmol/L Anion Gap 7 5-15 Blood Urea Nitrogen 13 9-23 mg/dL Creatinine 0.56 0.550-1.02 mg/dL Glomerular Filtration Rate Calc 115 >90 mL/min BUN/Creatinine Ratio 23.2 H 10.0-20.0 Serum Glucose 105 74-106 mg/dL Calcium Level 8.0 L 8.7-10.4 mg/dL Total Bilirubin 8.3 H 0.2-1.0 mg/dL Aspartate Amino Transferase (AST) 189 H 13-40 U/L Alanine Aminotransferase (ALT) 139 H 7-40 U/L Alkaline Phosphatase 849 H 46-116 U/L Total Protein 6.7 5.7-8.2 g/dL Albumin 3.1 L 3.2-4.8 g/dL Lactic Acid Level 1.6 0.4-2.0 mmol/L Anisocytosis (manual) Slight Hemoglobin A1c < 3.8 <5.7 % A1C Triglycerides Level 177 H < 150 mg/dL Cholesterol Level 471 H < 200 mg/dL LDL Cholesterol 439 H < 100 mg/dL HDL Cholesterol 12 L 40-59 mg/dL Lipase 167 H 12-53 U/L Urine Color Dark-yellow Yellow Urine Clarity Ex.turbid Clear Urine pH 5.5 5.0-9.0 Urine Specific [place] 1.021 1.001-1.035 Urine Protein Trace H Negative Urine Ketones Negative Negative Urine Blood 3+ H Negative /uL Urine Nitrite 2+ H Negative Urine Bilirubin 2+ H Negative Urine Urobilinogen Normal Negative mg/dL Urine Leukocyte Esterase Negative Negative /uL Urine RBC 854 0 - 4 /hpf Urine Microscopic WBC 14 H 0-5 /HPF Urine Squamous Epithelial Cells Few <5 /hpf Urine Bacteria Few H None Seen /hpf Urine Mucus Few None Seen Urine Glucose Normal Normal mg/dL Urine Opiates Screen Neg NEGATIVE Urine Fentanyl Screen Neg NEGATIVE Urine Barbiturates Screen Neg NEGATIVE Urine Phencyclidine Screen Neg NEGATIVE Urine Amphetamines Screen Neg NEGATIVE Urine Benzodiazepines Screen Neg NEGATIVE Urine Cocaine Screen Neg NEGATIVE Urine Cannabinoids Screen Neg NEGATIVE Microbiology Date/Time Source Procedure Growth Status 10/05/24 17:01 Voided Urine Urine Culture - Preliminary Resulted Assessment 44-year-old female with a history of autoimmune hepatitis apparently diagnosed at [facility] in [facility] about three years ago has got history of liver cirrhosis apparently had failed steroid treatment and was on as an are sodium now patient has been having complaining of worsening jaundice right flank pain as well as increasing splenomegaly with nausea anorexia and weakness. His symptoms leak treat with a bilirubin of nine AST ALT and alk phos are increased lipase is also increased to 167. Cholesterol level is [address] scan showed splenomegaly masses splenomegaly and possibly minimal ascites, MRI MRCP did not show any clear choledocholithiasis Impression possible cirrhosis of the liver without terminal history of autoimmune hepatitis not responding to steroids had been on ursodiol and jaundice is still worsening. Possibility of an obstructive disease in the bile duct can not be excluded but less likely with a normal MRCP still we will recommend an MRI with contrast to see the nature of the liver and the ducts Possibility of primary biliary cirrhosis also can not be excluded with such high alkaline phosphatase levels Plan/Recommendation Recommend to closely follow the liver enzymes CINTHYA , anti mitochondrial antibody and M2 levels Ammonia level Iron studies iron TIBC% saturation Copper studies copper ceruloplasmin Alpha-1 antitrypsin level Alpha-fetoprotein levels If the bilirubin keeps on increasing were male recommend an MRI with contrast IV contrast and oral contrast Recommend to transfer to a liver center for further treatment including repeat liver biopsy if necessary and consideration for liver transplant We will also try to get the records from [facility] in [facility] about the liver biopsy and original liver workup reports Overall prognosis is guarded Thank you Dr. Scarlet Garcia discussed with: Patient YUDELKA GEORGE MD Oct 06, 2024 16:13
[2024-10-06] MEDS: cefTRIAXone 1GM/50ML D5W 50 ML IV ONE (18:40)
[2024-10-06] MEDS: KETOROLAC TROMETH 30 MG/ML 1ML VIAL IV PRN (19:22)
[2024-10-06 21:00] VITALS: BP 109/68; PULSE 64; RESP 16; TEMP 98.1; O2SAT 100
[2024-10-07] VITALS (8 sets, daily range): BP systolic 91–105; BP diastolic 46–66; PULSE 66–76; RESP 16–18; TEMP 97.7–98.1; O2SAT 96–100
[2024-10-07 05:30] LABS: Hematocrit 32.3 % (36.0-46.0); Hemoglobin 11.0 g/dL (12.2-16.2); Mean Corpuscular Hemoglobin 32.5 pg (28.0-32.0); Mean Corpuscular Volume 95.0 fL (80.0-100.0)
[2024-10-07 05:42] LABS: Anion Gap 7 (5-15); BUN/Creatinine Ratio 16.3 (10.0-20.0); Carbon Dioxide 25 mmol/L (20-31); Glucose 76 mg/dL (74-106); Potassium 3.8 mmol/L (3.5-5.1); Sodium 140 mmol/L (136-145); Total Protein 5.7 g/dL (5.7-8.2)
[2024-10-07 05:43] LABS: Alanine Aminotransferase 108 U/L (7-40); Albumin 2.7 g/dL (3.2-4.8); Alkaline Phosphatase 742 U/L (46-116); Bilirubin, Total 8.5 mg/dL (0.2-1.0); Blood Urea Nitrogen 8 mg/dL (9-23); Calcium 8.1 mg/dL (8.7-10.4); Chloride 108 mmol/L (98-107)
[2024-10-07 06:33] LABS: Total Cells Counted 100.0 (100)
[2024-10-07] MEDS: cefTRIAXone 1GM/50ML D5W 50 ML IV SCH (09:21)
[2024-10-07] MEDS: PANTOPRAZOLE 40 MG/10 ML VIAL INJ IV SCH (09:57)
--- NOTE | 2024-10-07 13:25 | DVHPN2 ---
Subjective 44-year-old female with a known history of autoimmune hepatitis diagnosed at [facility] in [place] three years ago, liver cirrhosis, presented to the hospital with right flank pain found to have worsening liver function tests. Patient is still complaining of right flank pain and some dysuria. Changes from previous H/P or p: No Changes Eyes: No Pain, No Vision change, No Conjunctivae inflammation, No Eyelid inflammation, No Other, No Redness ENT: No Ear pain, No Ear discharge, No Nose pain, No Nose discharge, No Nose congestion, No Mouth pain, No Mouth swelling, No Throat pain, No Throat swelling, No Other Cardiovascular: No Chest Pain, No Palpitations, No Orthopnea, No Paroxysmal Noc. Dyspnea, No Edema, No Lt Headedness, No Other Respiratory: No Cough, No Dry, No Shortness of breath, No SOB with excertion, No Wheezing, No Hemoptysis, No Pleuritic Pain, No Sputum, No Other Gastrointestinal: Nausea, Vomiting, Abdominal Pain; No Diarrhea, No Constipation, No Melena, No Hematochezia; Other (Specifically right flank pain) Genitourinary: Dysuria, Frequency; No Incontinence, No Hematuria, No Retention; Other (Burning sensation while peeing) Musculoskeletal: No other, No neck pain, No shoulder pain, No arm pain, No back pain, No hand pain, No leg pain, No foot pain Skin: No Rash, No Lesions; Jaundice; No Bruising, No Other Objective Vitals Vital Signs Date Time Temp Pulse Resp B/P (MAP) Pulse Ox O2 Delivery O2 Flow Rate FiO2 10/07/24 08:50 98.1 68 17 91/57 (68) 98 98.1 10/06/24 23:04 Room Air* 0 21 Intake/Output Intake and Output 10/07/24 07:00 Intake Total 1450 ml Balance 1450 ml Intake Oral 600 ml IV Total 850 ml # Voids 2 Exam HEENT pupils are reactive, positive scleral icterus Neck is supple CV is S1-S2 regular rate and rhythm Respiratory diminished breath sounds bases GI positive bowel sounds soft nondistended nontender no guarding no rigidity 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 Medications Current Medications Medications Dose Ordered Sig/Sunday Route Start Time Stop Time Status Last Admin Dose Admin Ondansetron HCl 4 mg Q4HP PRN IV 10/05/24 21:45 10/07/24 06:40 4 MG Acetaminophen 650 mg Q6HR PO 10/06/24 11:00 Ketorolac Tromethamine 15 mg Q6HPRN PRN IV 10/06/24 11:00 10/11/24 10:59 10/07/24 06:19 15 MG Pantoprazole Sodium 40 mg DAILY IV 10/07/24 10:00 10/07/24 09:57 40 MG Metronidazole 100 ml @ 100 mls/hr Q8HR IV 10/06/24 22:00 10/07/24 06:24 100 MLS/HR Ceftriaxone Sodium 50 ml @ 100 mls/hr DAILY@09 IV 10/07/24 09:00 10/07/24 09:21 100 MLS/HR Ursodiol 600 mg BID PO 10/07/24 22:00 Laboratory Results Laboratory Tests 10/07/24 04:44 Chemistry Test 10/07/24 04:44 Albumin 2.7 g/dL (3.2-4.8) L Calcium Level 8.1 mg/dL (8.7-10.4) L Total Protein 5.7 g/dL (5.7-8.2) LFT Test 10/06/24 15:37 10/07/24 04:44 Direct Bilirubin 6.3 mg/dL (<0.3) H Alanine Aminotransferase (ALT) 108 U/L (7-40) H Alkaline Phosphatase 742 U/L (46-116) H Aspartate Amino Transferase (AST) 142 U/L (13-40) H Total Bilirubin 8.5 mg/dL (0.2-1.0) H Urinalysis Test 10/05/24 17:01 Urine Color Dark-yellow (Yellow) Urine Clarity Ex.turbid (Clear) Urine pH 5.5 (5.0-9.0) Urine Specific [place] 1.021 (1.001-1.035) Urine Protein Trace (Negative) H Urine Ketones Negative (Negative) Urine Blood 3+ /uL (Negative) H Urine Nitrite 2+ (Negative) H Urine Bilirubin 2+ (Negative) H Urine Urobilinogen Normal mg/dL (Negative) Urine Leukocyte Esterase Negative /uL (Negative) Urine RBC 854 /hpf (0 - 4) Urine Microscopic WBC 14 /HPF (0-5) H Urine Squamous Epithelial Cells Few /hpf (<5) Urine Bacteria Few /hpf (None Seen) H Urine Mucus Few (None Seen) Urine Glucose Normal mg/dL (Normal) Microbiology Microbiology Date/Time Source Procedure Growth Status 10/05/24 17:01 Voided Urine Urine Culture - Final Complete Assessment/Plan Assessment/Plan 44-year-old female with a known history of autoimmune hepatitis presented to the hospital with a worsening liver function tests and jaundice found to have 1. Autoimmune hepatitis 2. Elevated liver function tests with jaundice ruled out choledocholithiasis by negative MRCP 3. Dysuria suspected UTI, repeat UA urine culture 4. Liver cirrhosis 5. Splenomegaly with a splenic varices -repeat UA urine culture, aadd ursodiol,follow up GI recommendations. Plan discussed with: Patient My Orders Orders - TIGRE NUNEZ MD Procedure Category Date Status Time Ursodiol (Actigall) PHA 10/07/24 In Process 22:00 Date of Service: Oct 07, 2024 Billing Provider: TIGRE NUNEZ MD Common Visit Codes: [id number] INP/OBS CARE(MOD) TIGRE NUNEZ MD Oct 07, 2024 13:25
--- NOTE | 2024-10-07 15:11 | DVHPN2 ---
Progress Note - Dictate Date Seen: Oct 07, 2024 Medical Necessity Reason Pt with a Central, PICC or Fol: No Subjective Still complaining of weakness tiredness has got some problems with the leg pain had some borderline fracture or so of the duodenal do not know the details complaints of some swelling of the also left lower leg No nausea no vomiting no bleeding vital signs Vital Sign Date Time Temp Pulse Resp B/P (MAP) Pulse Ox O2 Delivery O2 Flow Rate FiO2 10/07/24 08:50 98.1 68 17 91/57 (68) 98 98.1 10/07/24 08:00 Room Air* 0 21 Total Intake and Output 10/06/24 10/06/24 10/07/24 15:00 23:00 07:00 Intake Total 400 ml 450 ml 600 ml Balance 400 ml 450 ml 600 ml medications Current Medications Medications Dose Ordered Sig/Sunday Route Start Time Stop Time Status Last Admin Dose Admin Ondansetron HCl 4 mg Q4HP PRN IV 10/05/24 21:45 10/07/24 06:40 4 MG Acetaminophen 650 mg Q6HR PO 10/06/24 11:00 Ketorolac Tromethamine 15 mg Q6HPRN PRN IV 10/06/24 11:00 10/11/24 10:59 10/07/24 13:19 15 MG Pantoprazole Sodium 40 mg DAILY IV 10/07/24 10:00 10/07/24 09:57 40 MG Metronidazole 100 ml @ 100 mls/hr Q8HR IV 10/06/24 22:00 10/07/24 06:24 100 MLS/HR Ceftriaxone Sodium 50 ml @ 100 mls/hr DAILY@09 IV 10/07/24 09:00 10/07/24 09:21 100 MLS/HR Ursodiol 600 mg BID PO 10/07/24 22:00 objective Abdomen is soft nontender no masses adhesions still has got some mild scleral icterus Left leg minimally swollen with number no Homans sign MRCP is negative for choledocholithiasis laboratory and microbiology Laboratory Tests 10/07/24 04:44 Test 10/07/24 04:44 Range/Units Serum Glucose 76 74-106 mg/dL Assessment/Plan 44-year-old female with a history of autoimmune hepatitis apparently diagnosed at [facility] in [facility] about three years ago has got history of liver cirrhosis apparently had failed steroid treatment and was on as an are sodium now patient has been having complaining of worsening jaundice right flank pain as well as increasing splenomegaly with nausea anorexia and weakness. His symptoms leak treat with a bilirubin of nine AST ALT and alk phos are increased lipase is also increased to 167. Cholesterol level is [address] scan showed splenomegaly masses splenomegaly and possibly minimal ascites, MRI MRCP did not show any clear choledocholithiasis Impression possible cirrhosis of the liver without terminal history of autoimmune hepatitis not responding to steroids had been on ursodiol and jaundice is still worsening. Possibility of an obstructive disease in the bile duct can not be excluded but less likely with a normal MRCP still we will recommend an MRI with contrast to see the nature of the liver and the ducts Possibility of primary biliary cirrhosis also can not be excluded with such high alkaline phosphatase levels 10/07/2024 Patient has got normal MRCP ruling out possible stones in the common bile duct Patient has been started on ursodiol Recommend to follow the liver enzymes closely and we will recommend close follow-up as an outpatient when discharged in the liver clinic If the leg pain worsen may need ultrasound studies to rule out DVT and other problems Thank you Dr. Novak Plan discussed with: Patient YUDELKA NOVAK MD Oct 07, 2024 15:11
[2024-10-07] MEDS: URSODIOL 300 MG CAP PO SCH (22:02)
[2024-10-07] MEDS: BACLOFEN 10 MG TAB PO ONE (22:50)
[2024-10-08] VITALS (8 sets, daily range): BP systolic 100–117; BP diastolic 57–69; PULSE 67–79; RESP 16–19; TEMP 97.7–98.3; O2SAT 98–100
[2024-10-08 11:39] LABS: Hematocrit 31.8 % (36.0-46.0); Hemoglobin 10.9 g/dL (12.2-16.2); Mean Corpuscular Hemoglobin 32.6 pg (28.0-32.0); Mean Corpuscular Volume 95.3 fL (80.0-100.0)
[2024-10-08 12:02] LABS: Anion Gap 8 (5-15); BUN/Creatinine Ratio 17.0 (10.0-20.0); Carbon Dioxide 26 mmol/L (20-31); Chloride 106 mmol/L (98-107); Glucose 81 mg/dL (74-106); Potassium 3.6 mmol/L (3.5-5.1); Sodium 140 mmol/L (136-145); Total Protein 5.8 g/dL (5.7-8.2)
[2024-10-08 12:03] LABS: Alanine Aminotransferase 101 U/L (7-40); Albumin 2.7 g/dL (3.2-4.8); Alkaline Phosphatase 789 U/L (46-116); Bilirubin, Total 8.4 mg/dL (0.2-1.0); Blood Urea Nitrogen 8 mg/dL (9-23); Calcium 8.0 mg/dL (8.7-10.4)
[2024-10-08 12:17] LABS: Total Cells Counted 100.0 (100)
[2024-10-08] MEDS: MORPHINE SULFATE INJ 2 MG/ml SYRG IV PRN (14:14)
--- NOTE | 2024-10-08 17:24 | DVHPN2 ---
Subjective 44-year-old female with a known history of autoimmune hepatitis diagnosed at [facility] in [place] three years ago, liver cirrhosis, presented to the hospital with right flank pain found to have worsening liver function tests. Patient is currently tolerating full liquid diet, advance diet as tolerated. Changes from previous H/P or p: No Changes Eyes: No Pain, No Vision change, No Conjunctivae inflammation, No Eyelid inflammation, No Other, No Redness ENT: No Ear pain, No Ear discharge, No Nose pain, No Nose discharge, No Nose congestion, No Mouth pain, No Mouth swelling, No Throat pain, No Throat swelling, No Other Cardiovascular: No Chest Pain, No Palpitations, No Orthopnea, No Paroxysmal Noc. Dyspnea, No Edema, No Lt Headedness, No Other Respiratory: No Cough, No Dry, No Shortness of breath, No SOB with excertion, No Wheezing, No Hemoptysis, No Pleuritic Pain, No Sputum, No Other Gastrointestinal: Nausea, Vomiting, Abdominal Pain; No Diarrhea, No Constipation, No Melena, No Hematochezia; Other (Specifically right flank pain) Genitourinary: Dysuria, Frequency; No Incontinence, No Hematuria, No Retention; Other (Burning sensation while peeing) Musculoskeletal: No other, No neck pain, No shoulder pain, No arm pain, No back pain, No hand pain, No leg pain, No foot pain Skin: No Rash, No Lesions; Jaundice; No Bruising, No Other Objective Vitals Vital Signs Date Time Temp Pulse Resp B/P (MAP) Pulse Ox O2 Delivery O2 Flow Rate FiO2 10/08/24 14:44 62 15 101/61 10/08/24 13:12 97.8 99 97.8 10/08/24 08:00 Room Air* 0 21 Intake/Output Intake and Output 10/08/24 07:00 Intake Total 790 ml Balance 790 ml Intake Oral 790 ml # Voids 5 Exam HEENT pupils are reactive, positive scleral icterus Neck is supple CV is S1-S2 regular rate and rhythm Respiratory diminished breath sounds bases GI positive bowel sounds soft nondistended nontender no guarding no rigidity 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 Medications Current Medications Medications Dose Ordered Sig/Sunday Route Start Time Stop Time Status Last Admin Dose Admin Ondansetron HCl 4 mg Q4HP PRN IV 10/05/24 21:45 10/07/24 06:40 4 MG Acetaminophen 650 mg Q6HR PO 10/06/24 11:00 Pantoprazole Sodium 40 mg DAILY IV 10/07/24 10:00 10/08/24 10:37 40 MG Metronidazole 100 ml @ 100 mls/hr Q8HR IV 10/06/24 22:00 10/08/24 12:57 100 MLS/HR Ceftriaxone Sodium 50 ml @ 100 mls/hr DAILY@09 IV 10/07/24 09:00 10/08/24 10:37 100 MLS/HR Ursodiol 600 mg BID PO 10/07/24 22:00 10/08/24 10:37 600 MG Morphine Sulfate 2 mg Q3HPRN PRN IV 10/08/24 13:30 10/08/24 14:14 2 MG Laboratory Results Laboratory Tests 10/08/24 11:18 Chemistry Test 10/08/24 11:18 Albumin 2.7 g/dL (3.2-4.8) L Calcium Level 8.0 mg/dL (8.7-10.4) L Total Protein 5.8 g/dL (5.7-8.2) LFT Test 10/08/24 11:18 Alanine Aminotransferase (ALT) 101 U/L (7-40) H Alkaline Phosphatase 789 U/L (46-116) H Aspartate Amino Transferase (AST) 136 U/L (13-40) H Total Bilirubin 8.4 mg/dL (0.2-1.0) H Urinalysis Test 10/05/24 17:01 Urine Color Dark-yellow (Yellow) Urine Clarity Ex.turbid (Clear) Urine pH 5.5 (5.0-9.0) Urine Specific [place] 1.021 (1.001-1.035) Urine Protein Trace (Negative) H Urine Ketones Negative (Negative) Urine Blood 3+ /uL (Negative) H Urine Nitrite 2+ (Negative) H Urine Bilirubin 2+ (Negative) H Urine Urobilinogen Normal mg/dL (Negative) Urine Leukocyte Esterase Negative /uL (Negative) Urine RBC 854 /hpf (0 - 4) Urine Microscopic WBC 14 /HPF (0-5) H Urine Squamous Epithelial Cells Few /hpf (<5) Urine Bacteria Few /hpf (None Seen) H Urine Mucus Few (None Seen) Urine Glucose Normal mg/dL (Normal) Microbiology Microbiology Date/Time Source Procedure Growth Status 10/07/24 17:30 Urine - Midstream Clean Catch Urine Culture - Preliminary Resulted Assessment/Plan Assessment/Plan 44-year-old female with a known history of autoimmune hepatitis presented to the hospital with a worsening liver function tests and jaundice found to have 1. Autoimmune hepatitis 2. Elevated liver function tests with jaundice ruled out choledocholithiasis by negative MRCP 3. Dysuria suspected UTI, repeat UA urine culture 4. Liver cirrhosis primary biliary cirrhosis 5. Splenomegaly with a splenic varices -patient is tolerating full liquid diet, advance diet as tolerated to low-salt diet. -continue ursodiol , repeat liver function tests, discharge plan with the follow up and department of hepatology as an outpatient. Plan discussed with: Patient My Orders Orders - TIGRE NUNEZ MD Procedure Category Date Status Time Urine Bacterial ROBERTO 10/08/24 In Process Culture 08:31 Morphine Sulfate PHA 10/08/24 In Process Injection 13:30 2 Gm Sodium Diet DIET 10/08/24 Transmitted Lunch Date of Service: Oct 08, 2024 Billing Provider: TIGRE NUNEZ MD Common Visit Codes: [id number] INP/OBS CARE(MOD) TIGRE NUNEZ MD Oct 08, 2024 17:23
[2024-10-09 01:22] VITALS: BP 106/60; PULSE 73; RESP 18; TEMP 98.4; O2SAT 100
[2024-10-09 05:19] VITALS: BP 109/74; PULSE 69; RESP 17; TEMP 98.2; O2SAT 100
[2024-10-09 06:54] LABS: Anion Gap 8 (5-15); BUN/Creatinine Ratio 16.0 (10.0-20.0); Carbon Dioxide 26 mmol/L (20-31); Chloride 106 mmol/L (98-107); Glucose 89 mg/dL (74-106); Potassium 3.6 mmol/L (3.5-5.1); Sodium 140 mmol/L (136-145); Total Protein 5.7 g/dL (5.7-8.2)
[2024-10-09 07:00] LABS: Alanine Aminotransferase 89 U/L (7-40); Alkaline Phosphatase 726 U/L (46-116); Blood Urea Nitrogen 8 mg/dL (9-23); Calcium 8.3 mg/dL (8.7-10.4)
[2024-10-09 07:01] LABS: Albumin 2.8 g/dL (3.2-4.8); Bilirubin, Total 7.9 mg/dL (0.2-1.0)
[2024-10-09 08:00] VITALS: PULSE 70; RESP 18; O2SAT 100
[2024-10-09 08:18] LABS: Hematocrit 30.5 % (36.0-46.0); Hemoglobin 10.4 g/dL (12.2-16.2); Mean Corpuscular Hemoglobin 32.4 pg (28.0-32.0); Mean Corpuscular Volume 94.6 fL (80.0-100.0)
[2024-10-09 08:45] LABS: Total Cells Counted 100.0 (100)
[2024-10-09 08:59] VITALS: BP 102/65; PULSE 77; RESP 16; TEMP 98.3; O2SAT 98
[2024-10-09 13:00] VITALS: BP 105/62; PULSE 71; RESP 16; TEMP 98; O2SAT 96
[2024-10-09] MEDS ORDERED: URSO1TAB8 PO (14:49)
[2024-10-09] MEDS ORDERED: NITR-52 PO (14:52)
--- NOTE | 2024-10-09 14:53 | DVHDS2 ---
Discharge Summary Date of Admission Oct 05, 2024 at 21:31 Date of Discharge: Oct 09, 2024 Labs/Diagnostic Data: Laboratory Results Test 10/09/24 06:03 10/07/24 04:44 10/06/24 15:37 10/05/24 23:16 White Blood Count 2.3 10^3/uL (4.4-10.8) Red Blood Count 3.22 10^6/uL (4.0-5.20) Hemoglobin 10.4 g/dL (12.2-16.2) Hematocrit 30.5 % (36.0-46.0) Mean Corpuscular Volume 94.6 fL (80.0-100.0) Mean Corpuscular Hemoglobin 32.4 pg (28.0-32.0) Mean Corpuscular Hemoglobin Concent 34.2 g/dL (32.0-36.0) Red Cell Distribution Width 16.4 % (11.8-14.3) Platelet Count 114 10^3/uL (140-450) Mean Platelet Volume 11.0 fL (6.9-10.8) Neutrophils (%) (Auto) % (37.0-80.0) Lymphocytes (%) (Auto) % (10.0-50.0) Monocytes (%) (Auto) % (0.0-12.0) Basophils (%) (Auto) % (0.0-2.0) Neutrophils # (Auto) 10 ^3/uL (1.6-8.6) Lymphocytes # (Auto) 10 ^3/uL (0.4-5.4) Monocytes # (Auto) 10 ^3/uL (0-1.3) Differential Total Cells Counted 100.0 (100) Neutrophils % (Manual) 54 (37.0-80.0) Band Neutrophils % (Manual) 0 Lymphocytes % (Manual) 37 (10.0-50.0) Monocytes % (Manual) 1 (0-12) Eosinophils % (Manual) 8 (0-7) Basophils % (Manual) 0 (0.0-2.0) Metamyelocytes % (manual) 0 Myelocytes % (Manual) 0 Promyelocytes % (Manual) 0 Blast Cells % (Manual) 0 Reactive Lymphocytes 0 Platelet Estimate Decreased Sodium Level 140 mmol/L (136-145) Potassium Level 3.6 mmol/L (3.5-5.1) Chloride Level 106 mmol/L (98-107) Carbon Dioxide Level 26 mmol/L (20-31) Anion Gap 8 (5-15) Blood Urea Nitrogen 8 mg/dL (9-23) Creatinine 0.50 mg/dL (0.550-1.02) Glomerular Filtration Rate Calc 119 mL/min (>90) BUN/Creatinine Ratio 16.0 (10.0-20.0) Serum Glucose 89 mg/dL (74-106) Calcium Level 8.3 mg/dL (8.7-10.4) Total Bilirubin 7.9 mg/dL (0.2-1.0) Aspartate Amino Transferase (AST) 111 U/L (13-40) Alanine Aminotransferase (ALT) 89 U/L (7-40) Alkaline Phosphatase 726 U/L (46-116) Total Protein 5.7 g/dL (5.7-8.2) Albumin 2.8 g/dL (3.2-4.8) Ammonia 31 umol/L (11-32) Direct Bilirubin 6.3 mg/dL (<0.3) Lactic Acid Level 1.6 mmol/L (0.4-2.0) Test 10/05/24 18:27 10/05/24 17:01 Anisocytosis (manual) Slight Hemoglobin A1c < 3.8 % A1C (<5.7) Triglycerides Level 177 mg/dL (< 150) Cholesterol Level 471 mg/dL (< 200) LDL Cholesterol 439 mg/dL (< 100) HDL Cholesterol 12 mg/dL (40-59) Lipase 167 U/L (12-53) Urine Color Dark-yellow (Yellow) Urine Clarity Ex.turbid (Clear) Urine pH 5.5 (5.0-9.0) Urine Specific [place] 1.021 (1.001-1.035) Urine Protein Trace (Negative) Urine Ketones Negative (Negative) Urine Blood 3+ /uL (Negative) Urine Nitrite 2+ (Negative) Urine Bilirubin 2+ (Negative) Urine Urobilinogen Normal mg/dL (Negative) Urine Leukocyte Esterase Negative /uL (Negative) Urine RBC 854 /hpf (0 - 4) Urine Microscopic WBC 14 /HPF (0-5) Urine Squamous Epithelial Cells Few /hpf (<5) Urine Bacteria Few /hpf (None Seen) Urine Mucus Few (None Seen) Urine Glucose Normal mg/dL (Normal) Urine Opiates Screen Neg (NEGATIVE) Urine Fentanyl Screen Neg (NEGATIVE) Urine Barbiturates Screen Neg (NEGATIVE) Urine Phencyclidine Screen Neg (NEGATIVE) Urine Amphetamines Screen Neg (NEGATIVE) Urine Benzodiazepines Screen Neg (NEGATIVE) Urine Cocaine Screen Neg (NEGATIVE) Urine Cannabinoids Screen Neg (NEGATIVE) Other Laboratory Tests 10/09/24 06:03 Brief Hx & Hospital Course: This is a 44-year-old female with past medical history of autoimmune hepatitis, liver cirrhosis who presented to the ED with chief complaint of worsening jaundice and right flank pain for the last one week. Patient reports that she had a cholecystectomy performed months ago but patient has been experiencing jaundice that comes and goes. Patient reports that in the last three days she started experiencing worsening of the jaundice associated with progressive fatigue, generalized weakness, nausea and vomiting. The patient also reports a sharp pain that comes and goes and is located in the right flank. Patient rates the pain as a 7/10 on the pain scale and stated that the pain is localized in the right flank without specific pattern of radiation. Patient states that lying down in the right side worsens the pain and states that she is able to tolerate oral food without problem but has very poor appetite recently. On admission, labs showed decreased WBC to 2.4, hemoglobin is 11.6, total bilirubin nine, AST 209, ALT 151, alkaline phosphatase 883 and lipase 167. Previous mentioned it labs showing cholestatic pattern. CT of the abdomen was performed showing massive splenomegaly with the extensive perisplenic varices and absent gallbladder due to cholecystectomy. There is also small amount of free pelvic fluid. We will ordered an MRCP to completely rule out choledocholithiasis which could possibly explain rise in all previous mentioned it labs if the stone is located below the junction of the common bile duct and pancreatic duct. We will place the patient on clear liquids, IV fluids, IV Zosyn, pain medications. We will admit the patient for further assessment and management. She is admitted and evaluated by instructional support technician. Patient has a known primary biliary cirrhosis with autoimmune hepatitis. Her serology that was sent here consistent with this. Therefore patient is advised to follow up with the her steel fixer/liver doctor in [place] as she has been following. Meantime she is also advised to follow up with a local instructional support technician. Otherwise while in the hospital her pain has resolved. Her MRCP of the abdomen is normal. Therefore it is felt she could be safely discharged home. Patient verbalized understanding her lab results, discharge medications, discharge instructions and agreed with the discharge follow-up plan of care as outlined Condition at Discharge: Stable Final Diagnosis/Problems List 1. Autoimmune hepatitis 2. Elevated liver function tests with jaundice ruled out choledocholithiasis by negative MRCP 3. Dysuria suspected UTI, repeat UA urine culture 4. Liver cirrhosis primary biliary cirrhosis 5. Splenomegaly with a splenic varices Discharge Disposition: Home Discharge Instruct/Medications Diet: Consistent carbohydrate, Cardiac 2g Na,low cholest Activity: No Restrictions, As Tolerated Follow Up/Referral: With the instructional support technician YUDELKA Gonsalves MD in 1-2 weeks and liver specialist in [place] in one month for further management of your jaundice. Medications: Take the medication as prescribed. Scheduled Nitrofurantoin (Nitrofurantoin), 1 CAP PO BID Ursodiol (Ursodiol), 500 MG PO BID Scheduled PRN Lorazepam (Ativan Tablet), 1 TAB PO TID PRN Discharge Statement: "Patient was advised to return to the ER or call 911 if any headaches, dizziness, shortness of breath, chest pain, abdominal pain, bleeding, fevers, or worsening of medical condition. Patient was counseled about treatment plan, medications, possible side effects, patientverbalized understanding. All questions were answered to the best of my ability. This discharge took greater then 30 minutes in planning, reviewing documentation, counseling the patient, and discussing with other team members." ASSESSMENT ASSESSMENT Assessment 1. Autoimmune hepatitis 2. Elevated liver function tests with jaundice ruled out choledocholithiasis by negative MRCP 3. Dysuria suspected UTI, repeat UA urine culture 4. Liver cirrhosis primary biliary cirrhosis 5. Splenomegaly with a splenic varices Date of Service: Oct 09, 2024 Billing Provider: YOVANI MANUEL MD Common Visit Codes: 50081-FTA/OBS DISCH DAY <30MIN YOVANI MANUEL MD Oct 09, 2024 14:53
[2024-10-09 16:46] VITALS: BP 124/78; PULSE 78; RESP 18
[2024-10-11 09:07] LABS: Anti-Centromere B Antibody >8.0 AI (0.0-0.9); Anti-Jo-1 Antibody <0.2 AI (0.0-0.9); Anti-dsDNA Antibody 2 IU/mL (0-9); Antichromatin Antibody 0.6 AI (0.0-0.9); Antiscleroderma-70 Antibody <0.2 AI (0.0-0.9); Sjogren's Anti-SS-A Antibody 1.1 AI (0.0-0.9); Sjogren's Anti-SS-B Antibody 0.2 AI (0.0-0.9)
== END 2024-10-09 16:55 | disposition home or self-care (01) | DRG 463 ==
LOC: ER 17:22 → OVERFLOW 21:31 → EAST 10-06 21:27
PROVIDERS: ADMIT Hospitalist; ATTEND Hospitalist
DX: N30.00 Acute cystitis without hematuria (principal); K85.90 Acute pancreatitis without necrosis or infection, unspecified; K74.3 Primary biliary cirrhosis; K75.4 Autoimmune hepatitis; E80.6 Other disorders of bilirubin metabolism; I86.8 Varicose veins of other specified sites; K59.00 Constipation, unspecified; K74.60 Unspecified cirrhosis of liver; Z90.49 Acquired absence of other specified parts of digestive tract; Z80.1 Family history of malignant neoplasm of trachea, bronchus and lung; Z79.899 Other long term (current) drug therapy; Z79.2 Long term (current) use of antibiotics
CPT/HCPCS: 36415; 74176; 74181; 80053; 80061; 80307; 81001; 82140; 82248; 83036; 83516; 83605; 83690; 85007; 85027; 86225; 86235; 86256; 86671; 87086; 96365; 96375; G0378; J1885; J2405; J2470; J2543; J3490